=== PATIENT | female | born 1965 | race Caucasian/White ===

== ENCOUNTER 2019-04-25 10:15 | Emergency (ER) | payer BC, SELFPAY ==
--- NOTE | ~2019-04-25 | XR_ITS ---
EXAMINATION: XR chest 2V DATE: 04/25/2019 11:03 INDICATION: Cough and fever TECHNIQUE: PA and lateral views of the chest are obtained. COMPARISON: 10/10/2006 FINDINGS: The lungs are free of acute opacities. There is no pleural effusion or pneumothorax. The ca rdiomediastinal silhouette is normal. There is mild thoracic spondylosis. IMPRESSION: 1. No acute cardiopulmonary abnormality. Reviewed, dictated and finalized at location A. WOOD FLOORING SPECIALIST
[2019-04-25 10:38] VITALS: BP 128/75; PULSE 97; RESP 18; TEMP 36.9; O2SAT 97
--- NOTE | 2019-04-25 10:55 | ED.URI ---
HPI - URI/Sore Throat General Chief Complaint: Upper Respiratory Infection Stated Complaint: cough/congestion Time Seen by Provider: 04/25/19 10:45 Source: patient Mode of arrival: ambulatory Limitations: no limitations History of Present Illness HPI Narrative: Krys Camargo is a 53 yo female with a PMH asthma, HTN, high cholesterol, depression, who comes to express care with asthma exacerbation possible other upper respiratory infection. States many people are sick at work; Sunday evening started to feel fatigued and began running a temperature. Last night had a fever of 102.5. Is wheezing even though has been using nebulizer and albuterol inhaler Related Data Home Medications Medication Instructions Recorded Confirmed allopurinol 300 mg PO DAILY 04/25/19 04/25/19 alprazolam 0.25 mg PO DAILY 04/25/19 04/25/19 atenolol-chlorthalidone 1 tablet PO DAILY 04/25/19 04/25/19 estradiol-norethindrone acet 1 tablet PO DAILY 04/25/19 04/25/19 [Amabelz] sertraline 100 mg PO DAILY 04/25/19 04/25/19 simvastatin 10 mg PO DAILY 04/25/19 04/25/19 Allergies Allergy/AdvReac Type Severity Reaction Status Date / Time PROCESSED FRUCTOSE-CORN SYRUP AdvReac Intermediate SEVERE Uncoded 04/25/19 10:31 DIARRHEA Review of Systems Review of Systems: Narrative: CONSTITUTIONAL: Denies fever, chills, sweats. EYES: Denies visual changes, redness, discharge. ENT: Denies rhinorrhea, congestion, sore throat, otalgia. CARDIOVASCULAR: Denies chest pain, palpitations, edema. RESPIRATORY: has dyspnea, wheezing, cough GASTROINTESTINAL: Denies abdominal pain, nausea, vomiting, diarrhea. GENITOURINARY: Denies dysuria, hematuria, abnormal discharge SKIN: Denies rash or itching. MUSCULOSKELETAL: Denies acute back pain, joint pain, or myalgia. NEUROLOGIC: Denies numbness, or focal weakness. PSYCHIATRIC: Denies anxiety or depression. [facility] Family History Family History (Updated 09/18/17 @ 12:29 by DOCTOR UNKNOWN) Father Diabetes mellitus Hypertension Family history of elevated blood lipids Acute myocardial infarction Cerebrovascular accident Colon polyp Grandparent Diabetes mellitus Family history of elevated blood lipids Cerebrovascular accident, Onset Age: 50 Carcinoma of colon Family history of sudden , Onset Age: 50 Mother Hypertension Family history of malignant neoplasm of breast in first degree relative Sibling Hypertension Social History Social History Smoking status: Never smoker Alcohol intake: current Comments At time of signature, I agree with nursing past medical, surgical, social and family history. There is no relevant family history pertinent to the presenting complaint. Exam Narrative: Exam Narrative: GENERAL: This is a well-nourished, well-developed patient, in moderate distress. Laying head on exam table when entered room-flushed, perspiring HEAD: normocephalic, atraumatic. EYES: PERRL. Sclera clear/white. Vision is grossly intact. EARS: External ears normal, . Hearing grossly intact. NOSE: External nose normal with nasal discharge, nares without redness, has rhinorrhea. THROAT: Mucous membranes moist, posterior pharynx erythema. NECK: Neck supple, non-tender without lymphadenopathy, CARDIOVASCULAR: Tachycardic rate and rhythm without murmurs, gallops, or rubs. RESPIRATORY: Diminished to auscultation. Breath sounds equal bilaterally. Diffuse bilateral wheezes, no rhonchi. GASTROINTESTINAL: Abdomen soft, non-tender, SKIN: warm, intact with no suspicious lesions or rash, good texture and turgor. NEURO: awake, alert, and oriented to person, place and time. There were no obvious focal neurologic abnormalities. Steady gait EXTREMITIES: Normal range of motion. No edema. BACK: Nontender without deformity or crepitance. . Course Course Emergency Course: Chest x-ray, DuoNeb, Solu-Medrol IM Depending on results of chest x-ray will start on prednisone taper additional
[2019-04-25] MEDS: ALBUTEROL SULFATE NEB 2.5 MG/3 ML INH INHALATION (11:04)
[2019-04-25] MEDS: IPRATROPIUM BR 0.02% INH SOLN 0.5 MG/2.5 ML VIAL INHALATION (11:04)
[2019-04-25] MEDS: methylPREDNISolone SOD SUCC 125 MG VIAL IM (11:25)
[2019-04-25 11:46] VITALS: BP 132/98; PULSE 110; RESP 20; TEMP 36.2; O2SAT 98
== END 2019-04-25 11:46 | disposition home or self-care (01) ==
PROVIDERS: Emergency Provider Nurse Practitioner; PCP Family Medicine
DX: J45.909 Unspecified asthma, uncomplicated (principal); E78.00 Pure hypercholesterolemia, unspecified; I10 Essential (primary) hypertension; F32.9 Major depressive disorder, single episode, unspecified; M10.9 Gout, unspecified; G25.81 Restless legs syndrome
CPT/HCPCS: 71046; 94640; 96372; 99213; G0463; J2930

== ENCOUNTER 2020-02-28 07:17 | Outpatient (CLI) | payer BC, SELFPAY ==
--- NOTE | ~2020-02-28 | MM_ITS ---
EXAMINATION: MM screening antonina BI w vinicius HISTORY: Screening TECHNIQUE: Craniocaudal and mediolateral oblique 3-D tomosynthesis images were obtained and synthetic 2-D images were generated. CAD analysis was submitted and interpreted. COMPARISON: Comparison to multiple prior studies sequentially, with oldest reviewed study dated 11/2013. BREAST PARENCHYMAL COMPOSITION: There are scattered areas of fibroglandular density. FINDINGS: There is no evidence of suspicious mass, calcification, or architectural distortion to sugg est malignancy in either breast. There has been no suspicious interval change. IMPRESSION: 1. No mammographic evidence of malignancy. 2. Recommend routine screening mammography in one year. BI-RADS Category 1: Negative Reviewed, dictated and finalized at location A. GES SUPERVISOR
== END 2020-02-28 07:18 | disposition home or self-care (01) ==
LOC: ANHIMG 07:19
PROVIDERS: PCP Family Medicine; Visit Provider Obstetrics & Gynecology
DX: Z12.31 Encounter for screening mammogram for malignant neoplasm of breast (principal)
CPT/HCPCS: 77063; 77067

== ENCOUNTER → 2020-12-17 03:52 | Outpatient (CLI) | payer BC, SELFPAY ==
[2020-12-17 18:26] LABS: SARS-CoV-2 RNA PCR Negative
== END ==
PROVIDERS: PCP Family Medicine; Visit Provider Internal Medicine Gastroenterology
DX: Z01.812 Encounter for preprocedural laboratory examination (principal); Z20.822 Contact with and (suspected) exposure to COVID-19
CPT/HCPCS: C9803; U0003; U0005

== ENCOUNTER 2020-12-20 00:31 | Day surgery (SDC) | payer BC, SELFPAY ==
[2020-12-09 09:48] VITALS: BMI 42.0
[2020-12-20 09:38] VITALS: BP 118/89; PULSE 80; RESP 20; TEMP 35.8; O2SAT 99; BMI 41.5
--- NOTE | 2020-12-20 09:42 | WPDHPUPDATE1 ---
History and Physical Update Update Date/Time: 12/20/20 09:42 History and Physical has been reviewed, including an updated exam of the patient. There are NO changes in the patient's condition. Risks, benefits, and alternatives have been discussed and questions answered. Patient agrees to proceed with procedure.
--- NOTE | 2020-12-20 10:01 | P.PNAN_ITS ---
Anes - Initial Pre Proc Eval Procedure: Operation Date: 12/20/20 10:30 Proposed Procedures p Colonoscopy - Richardson Hammer MD Date/Time: 12/20/20 10:01 Surgeon: Richardson Hammer MD Pre Op Diagnosis: GI bleed Patient Data Age: 55 Gender: F Height: 1.68 m Weight: 116.7 kg Last Vital Signs Temp 35.8 C L 12/20/20 09:38 Pulse 80 12/20/20 09:38 Resp 20 12/20/20 09:38 BP 118/89 12/20/20 09:38 Pulse Ox 99 12/20/20 09:38 Allergies Allergy/AdvReac Type Severity Reaction Status Date / Time PROCESSED FRUCTOSE-CORN SYRUP AdvReac Intermediate SEVERE Uncoded 12/20/20 09:37 DIARRHEA Home Medications Medication Instructions Recorded Confirmed Type albuterol sulfate 90 mcg/actuation 2 inhalation INHALATION Q4-6H PRN 05/02/19 12/20/20 Rx breath activated powder #1 each inhaler,sensor psyllium seed (sugar) oral powder 1 tbsp PO DAILY 05/02/19 12/20/20 History alprazolam 0.25 mg tablet 0.25 mg PO DAILY #90 tablet 10/28/20 12/20/20 Rx atenolol 100 mg-chlorthalidone 25 1 tablet PO DAILY #90 tablet 10/28/20 12/20/20 Rx mg tablet allopurinol 300 mg PO DAILY 12/09/20 12/20/20 History cholecalciferol (vitamin D3) 1,250 mcg PO WEEKLY 12/09/20 12/20/20 History omeprazole magnesium [Prilosec OTC] 20 mg PO DAILY 12/09/20 12/20/20 History sertraline 100 mg PO DAILY 12/09/20 12/20/20 History simvastatin 20 mg PO DAILY 12/09/20 12/20/20 History Patient hx anesthesia problems: none Family hx anesthesia problems: none Results Review: All pre-operative results and documents have been reviewed as part of the pre-operative evaluation. [facility] Family History Family History Father Diabetes mellitus Hypertension Family history of elevated blood lipids Acute myocardial infarction Cerebrovascular accident Colon polyp Grandparent Diabetes mellitus Family history of elevated blood lipids Cerebrovascular accident, Onset Age: 50 Carcinoma of colon Family history of sudden , Onset Age: 50 Mother Hypertension Family history of malignant neoplasm of breast in first degree relative Sibling Hypertension Social History Social History Smoking status: Never smoker Alcohol intake: current Living arrangements: with family Spiritual care concerns: No Anes - Eval Final PreProcedure Day of Procedure 12/20/20 10:01 Patient weight: morbidly obese Heart: regular rate and rhythm Lungs: clear to auscultation Airway: Mallampati scale class III Neurological: alert and oriented Last oral intake: >/= 8 hours ASA classification: III Emergent: no Anesthetic plan: proceed Anesthesia type and monitoring: general GIVS and standard monitoring Results Review: All pre-operative results and documents have been reviewed as part of the pre-operative evaluation. Informed Consent: The patient's anesthetic plan and its attendant risks and benefits were discussed with the patient/family/POA. Questions were solicited and answers provided to the satisfaction of the patient/family/POA.
[2020-12-20] MEDS: LACTATED RINGERS 1,000 ML 150 ML IV CONT (10:04)
[2020-12-20 10:34] VITALS: BP 108/68; PULSE 85; RESP 26; O2SAT 95
[2020-12-20 10:44] VITALS: BP 113/75; PULSE 79; RESP 27; O2SAT 95
[2020-12-20 10:54] VITALS: BP 128/85; PULSE 74; RESP 26; O2SAT 96
== END 2020-12-20 11:05 | disposition home or self-care (01) ==
PROVIDERS: PCP Family Medicine; Visit Provider Internal Medicine Gastroenterology
PROC: 0DJD8ZZ Inspection of Lower Intestinal Tract, Via Natural or Artificial Opening Endoscopic (ICD-10-PCS; CPT 45378; principal; 2020-12-20 10:30)
DX: K92.1 Melena (principal); Z86.010 Personal history of colon polyps; K64.8 Other hemorrhoids; Z80.0 Family history of malignant neoplasm of digestive organs; Z79.51 Long term (current) use of inhaled steroids; E66.01 Morbid (severe) obesity due to excess calories; Z68.41 Body mass index [BMI] 40.0-44.9, adult
CPT/HCPCS: 45378; C9803; J7120; U0003; U0005

== ENCOUNTER 2021-03-12 07:08 | Outpatient (CLI) | payer BC, SELFPAY ==
--- NOTE | ~2021-03-12 | MM_ITS ---
EXAMINATION: MM screening antonina BI w vinicius HISTORY: Screening TECHNIQUE: Craniocaudal and mediolateral oblique 3-D tomosynthesis images were obtained and synthetic 2-D images were generated. CAD analysis was submitted and interpreted. COMPARISON: Comparison to multiple prior studies sequentially, with oldest reviewed study dated 11/14. BREAST PARENCHYMAL COMPOSITION: There are scattered areas of fibroglandular density. FINDINGS: There is no evidence of suspicious mass, calcification, or architectural distortion to sugg est malignancy in either breast. There has been no suspicious interval change. IMPRESSION: 1. No mammographic evidence of malignancy. 2. Recommend routine screening mammography in one year. BI-RADS Category 1: Negative Reviewed, dictated and finalized at location A. NICIAN ASSISTANT
== END 2021-03-12 07:09 | disposition home or self-care (01) ==
LOC: ANHIMG 07:09
PROVIDERS: PCP Family Medicine; Visit Provider Obstetrics & Gynecology
DX: Z12.31 Encounter for screening mammogram for malignant neoplasm of breast (principal)
CPT/HCPCS: 77063; 77067

== ENCOUNTER 2021-06-09 13:00 | Outpatient (RCR) | payer BC, SELFPAY ==
[2021-05-24 08:02] VITALS: BMI 43.8
[2021-05-24 08:06] VITALS: BMI 43.8
== END 2021-06-10 16:34 | disposition home or self-care (01) ==
LOC: ANHDMC 13:00
PROVIDERS: PCP Family Medicine; Visit Provider Physician Assistant
DX: E11.9 Type 2 diabetes mellitus without complications (principal); Z71.3 Dietary counseling and surveillance; Z71.89 Other specified counseling
CPT/HCPCS: 97802; G0108

== ENCOUNTER 2021-08-19 10:09 | Emergency (ER) | payer BC, SELFPAY ==
[2021-08-19 10:20] VITALS: BP 117/82; PULSE 74; RESP 18; TEMP 36.4; O2SAT 99
--- NOTE | 2021-08-19 10:23 | ED.SKABFB ---
HPI - Skin/Abscess/Foreign Bdy General Chief complaint: Extremity Injury, Lower Stated complaint: glass in rt foot Time Seen by Provider: 08/19/21 10:24 Source: patient Mode of arrival: ambulatory Limitations: no limitations History of Present Illness HPI narrative: Ms. Camargo is a 55-year-old female patient presenting to the clinic today with complaints of possible glass in her right foot. She reports she dropped a plate this morning and accidentally stepped on the glass. Was able to get some glass out but feels as though there is still some glass in her foot. She is a diabetic. MD complaint: foreign body Related Data Home Medications Medication Instructions Recorded Confirmed allopurinol 300 mg tablet 300 tablet DAILY 08/19/21 08/19/21 alprazolam 0.25 mg tablet 0.25 tablet DAILY 08/19/21 08/19/21 atenolol 100 mg-chlorthalidone 25 1 tablet DAILY 08/19/21 08/19/21 mg tablet cholecalciferol (vitamin D3) 1,250 50,000 unit WEEKLY 08/19/21 08/19/21 mcg (50,000 unit) capsule empagliflozin 5 mg-metformin 500 1 tablet BID 08/19/21 08/19/21 mg tablet (Synjardy) metformin 500 mg tablet 500 tablet BID 08/19/21 08/19/21 sertraline 100 mg tablet 100 tablet DAILY 08/19/21 08/19/21 simvastatin 20 mg tablet 20 tablet DAILY 08/19/21 08/19/21 sitagliptin 100 mg tablet (Januvia) 100 tablet DAILY 08/19/21 08/19/21 Allergies Allergy/AdvReac Type Severity Reaction Status Date / Time PROCESSED FRUCTOSE-CORN SYRUP AdvReac Intermediate SEVERE Uncoded 08/19/21 10:32 DIARRHEA Review of Systems Review of Systems: Pertinent positives per HPI. Patient denies any fever, chills, rash, headache, visual changes, dizziness, cough, runny nose, sore throat, shortness of breath, chest pain, palpitations, nausea, vomiting, diarrhea, constipation, abdominal pain, or any urinary issues. [facility] Family History Family History Father Diabetes mellitus Hypertension Family history of elevated blood lipids Acute myocardial infarction Cerebrovascular accident Colon polyp Grandparent Diabetes mellitus Family history of elevated blood lipids Cerebrovascular accident, Onset Age: 50 Carcinoma of colon Family history of sudden , Onset Age: 50 Mother Hypertension Family history of malignant neoplasm of breast in first degree relative Sibling Hypertension Social History Social History Alcohol intake: current Spiritual care concerns: No Comments At the time of my signature, I reviewed and agree with the nursing past medical, surgical, social, and family history. There is no relevant family history pertinent to the patient complaint. Exam Narrative: General: Well-developed, well nourished, in no apparent distress Head: Normocephalic, atraumatic. Cardio: Regular rate and rhythm, s1 and s2 normal, no murmur appreciated. Resp: Clear to auscultation bilaterally, no rhonchi, rales, wheezing or rubs. Integumentary: [place], warm, and dry, has an open wound to the right plantar aspect of the midfoot where she has cut the skin to remove glass. Area is very tender to palpation with mild redness. Feels as though there may be retained foreign body to this area. Course Course Emergency Course: Portions of this record may have been created with voice recognition software. Level of Care: Express Care Visit Vital Signs Vital signs: Vital Signs Temperature 36.4 C 08/19/21 10:20 Pulse Rate 74 08/19/21 10:20 Respiratory Rate 18 08/19/21 10:20 Blood Pressure 117/82 08/19/21 10:20 Pulse Oximetry 99 08/19/21 10:20 Oxygen Delivery Room Air 08/19/21 10:20 Temperature 36.4 C 08/19/21 10:20 Pulse Rate 74 08/19/21 10:20 Respiratory Rate 18 08/19/21 10:20 Blood Pressure 117/82 08/19/21 10:20 Pulse Oximetry 99 08/19/21 10:20 Oxygen Delivery Room Air 08/19/21 10:2
== END 2021-08-19 11:06 | disposition home or self-care (01) ==
PROVIDERS: Emergency Provider Nurse Practitioner Family; PCP Family Medicine
DX: S91.341A Puncture wound with foreign body, right foot, initial encounter (principal); W25.XXXA Contact with sharp glass, initial encounter; E78.00 Pure hypercholesterolemia, unspecified; I10 Essential (primary) hypertension; J45.909 Unspecified asthma, uncomplicated; M10.9 Gout, unspecified; E11.9 Type 2 diabetes mellitus without complications; F32.A Depression, unspecified
CPT/HCPCS: 10120; 99213; G0463

== ENCOUNTER 2021-12-05 10:20 | Emergency (ER) | payer BC, SELFPAY ==
--- NOTE | ~2021-12-05 | XR_ITS ---
EXAMINATION: XR chest 2V DATE: 12/05/2021 11:14 INDICATION: Cough and wheezing. TECHNIQUE: Frontal and lateral views of the chest were obtained. COMPARISON: Chest 2 views 04/25/2019 FINDINGS: The chest demonstrates clear lungs without pneumonia, pleural effusion, or pneumothorax. Th e heart size is normal. IMPRESSION: 1. No acute cardiopulmonary disease. Reviewed, dictated and finalized at location A.
[2021-12-05 10:47] VITALS: BP 124/87; PULSE 85; RESP 18; TEMP 36.4; O2SAT 98
--- NOTE | 2021-12-05 10:53 | ED.GENADULT ---
HPI - General Adult General Chief complaint: Upper Respiratory Infection Stated complaint: cough History of Present Illness HPI narrative: 56 y/o female. PMHx ZACKERY, HTN, Asthma, CAP, Dyslipidemia, DM II, Gout. Presents to [facility] today with acute complaints of increased nasal congestion, cough, and wheezing. She reports manifestations worsening in the past 4 days. She tells me she has been exposed to her at home, ill with similar issues in the past few days. Feels feverish . No DEVINE, lethargy, myalgia. Productive cough. Wheezing, that has improved with home Albuterol HFA. Denies otalgia, sore throat. No chest pain, palpitation, dyspnea. No GI upset, N/V/D. She is w/o additional acute c/o upon PE. Related Data Home Medications Medication Instructions Recorded Confirmed allopurinol 300 mg tablet 300 tablet DAILY 08/19/21 08/19/21 alprazolam 0.25 mg tablet 0.25 tablet DAILY 08/19/21 08/19/21 atenolol 100 mg-chlorthalidone 25 1 tablet DAILY 08/19/21 08/19/21 mg tablet empagliflozin 5 mg-metformin 500 1 tablet BID 08/19/21 08/19/21 mg tablet (Synjardy) simvastatin 20 mg tablet 20 tablet DAILY 08/19/21 08/19/21 Allergies Allergy/AdvReac Type Severity Reaction Status Date / Time PROCESSED FRUCTOSE-CORN SYRUP AdvReac Intermediate SEVERE Uncoded 08/19/21 10:32 DIARRHEA Review of Systems Review of Systems: CONSTITUTIONAL: Feels Feverish, chills. No sweats. EYES: Denies visual changes, redness, discharge. ENT: + rhinorrhea, congestion. No sore throat, otalgia. CARDIOVASCULAR: Denies chest pain, palpitations, edema. RESPIRATORY: No dyspnea. + wheezing, cough GASTROINTESTINAL: Denies abdominal pain, nausea, vomiting, diarrhea. GENITOURINARY: Denies dysuria, hematuria, abnormal discharge SKIN: Denies rash or itching. MUSCULOSKELETAL: Denies acute back pain, joint pain, or myalgia. NEUROLOGIC: Denies numbness, or focal weakness. PSYCHIATRIC: Denies anxiety or depression. [facility] Family History Family History Father Diabetes mellitus Hypertension Family history of elevated blood lipids Acute myocardial infarction Cerebrovascular accident Colon polyp Grandparent Diabetes mellitus Family history of elevated blood lipids Cerebrovascular accident, Onset Age: 50 Carcinoma of colon Family history of sudden , Onset Age: 50 Mother Hypertension Family history of malignant neoplasm of breast in first degree relative Sibling Hypertension Social History Social History Alcohol intake: current Spiritual care concerns: No Exam Narrative: GENERAL: This is a well-nourished, well-developed adult, in no apparent distress. HEAD: normocephalic. EYES: Sclera clear/white. EARS: External ears normal, auditory canals clear and without drainage, TMs normal. NOSE: External nose normal. Positive Rhinorrhea. No obstruction, nares patent. THROAT: Mucous membranes moist, posterior pharynx is mildly erythematous. +PND. No exudates. NECK: Neck supple, non-tender without lymphadenopathy, masses or thyromegaly. CARDIOVASCULAR: Regular rate and rhythm without murmurs, gallops, or rubs. No edema. RESPIRATORY: Breath sounds equal bilaterally. No wheezes or rales. Upper airway rhonchi, cleared w/cough. GASTROINTESTINAL: Abdomen soft, non-tender, nondistended. Bowel sounds are active. No guarding. SKIN: warm, intact with no suspicious lesions or rash, good texture and turgor. NEURO: Alert, active, and age appropriate. No focal neurologic deficits. Course Course Level of Care: Express Care Visit Medical Decision Making MDM Narrative Medical decision making narrative: -Known Hx including PNA, Asthma. -No hypoxemia, no respiratory distress. -SARS Covid:negative. -Chest Xray: No acute cardiopulmonary disease. -DC to home stable. -Zpack & Medrol, U
== END 2021-12-05 11:37 | disposition home or self-care (01) ==
PROVIDERS: Emergency Provider Nurse Practitioner Adult Health
DX: J45.909 Unspecified asthma, uncomplicated (principal); J06.9 Acute upper respiratory infection, unspecified; I10 Essential (primary) hypertension; E78.5 Hyperlipidemia, unspecified; E11.9 Type 2 diabetes mellitus without complications; M10.9 Gout, unspecified; F41.1 Generalized anxiety disorder
CPT/HCPCS: 71046; 99213; G0463

== ENCOUNTER 2022-04-01 07:12 | Outpatient (CLI) | payer BC, SELFPAY ==
--- NOTE | ~2022-04-01 | MM_ITS ---
EXAMINATION: MM screening antonina BI w vinicius HISTORY: Screening mammogram TECHNIQUE: Craniocaudal and mediolateral oblique 3-D tomosynthesis images were obtained and synthetic 2-D images were generated. CAD analysis was submitted and interpreted. COMPARISON: 03/12/2021, 02/28/2020, 02/15/2019 bilateral screening mammogram examinations BREAST PARENCHYMAL COMPOSITION: The breasts are almost entirely fatty. FINDINGS: There is no evidence of suspicious mass, calcification, or architectural distortion to sugg est malignancy in either breast. There has been no suspicious interval change. IMPRESSION: 1. No mammographic evidence of malignancy. 2. Recommend routine screening mammography in one year. BI-RADS Category 1: Negative Reviewed, dictated and finalized at location A. GER INSURANCE
== END 2022-04-01 07:13 | disposition home or self-care (01) ==
LOC: ANHIMG 07:13
PROVIDERS: PCP Emergency Medicine; Visit Provider Obstetrics & Gynecology
DX: Z12.31 Encounter for screening mammogram for malignant neoplasm of breast (principal)
CPT/HCPCS: 77063; 77067

== ENCOUNTER 2022-09-25 11:49 | Emergency (ER) | payer BC, SELFPAY ==
--- NOTE | 2022-09-25 11:51 | ED.SKABFB ---
HPI - Skin/Abscess/Foreign Bdy General Chief complaint: Skin/Abscess/Foreign Body Stated complaint: Rash Time Seen by Provider: 09/25/22 12:05 Source: patient, RN notes reviewed and old records reviewed Mode of arrival: ambulatory Limitations: no limitations History of Present Illness HPI narrative: 56-year-old female presents to the [facility] with a red area for over 1 week to the left antecubital. Patient reports that she had blood work done, the use tape and started with red spots to the area now it has grown and become itchy and dry. Put Vaseline on it once this morning. Onset (ago): week(s) (Over 1 week) Treatments prior to arrival: other (Vaseline this morning) Related Data Home Medications Medication Instructions Recorded Confirmed allopurinol 300 mg tablet 300 mg PO DAILY 07/14/22 09/25/22 omeprazole magnesium 10 mg oral 20 mg PO QHS 07/14/22 09/25/22 suspension,delayed release (Prilosec) Allergies Allergy/AdvReac Type Severity Reaction Status Date / Time adhesive tape AdvReac Mild Rash Verified 09/25/22 12:04 PROCESSED FRUCTOSE-CORN SYRUP AdvReac Intermediate SEVERE Uncoded 09/25/22 11:56 DIARRHEA Review of Systems Review of Systems: All systems reviewed & are unremarkable except as noted in HPI and below Constitutional: Constitutional: Reports no additional constitutional complaints Eyes: Eyes: Reports no additional eye complaints ENT: Reports system reviewed and no additional complaints, except as documented Cardiovascular: Cardiovascular: Reports no additional cardiovascular complaints, Denies chest pain and Denies dyspnea Respiratory: Respiratory: Reports no additional respiratory complaints, Denies chest congestion, Denies cough and Denies dyspnea Gastrointestinal: Gastrointestinal: Reports no additional gastrointestinal complaints, Denies abdominal pain, Denies nausea and Denies vomiting Musculoskeletal: Musculoskeletal: Reports no additional musculoskeletal complaints Integumentary/Breasts: Skin/Breast: Reports as per HPI Neurologic: Reports system reviewed and no additional complaints, except as documented Psychiatric: Psychiatric: Reports no additional psychiatric complaints Allergic/Immunologic: Allergic/Immunologic: Reports no additional allergic/immunologic complaints PMFSH Past Medical History Medical History Asthma Asthma exacerbation Depression DJD of shoulder Essential (primary) hypertension Gout, unspecified High cholesterol HTN (hypertension) Hyperlipidemia, unspecified Left shoulder pain Major depressive disorder, single episode, unspecified Obesity, unspecified Polyp of colon Prediabetes Restless legs syndrome Right shoulder pain Type 2 diabetes mellitus Vitamin D deficiency, unspecified Surgical History Surgical History History of bladder surgery Bladder Sling Family History Family History Father Diabetes mellitus Hypertension Family history of elevated blood lipids Acute myocardial infarction Cerebrovascular accident Colon polyp Grandparent Diabetes mellitus Family history of elevated blood lipids Cerebrovascular accident, Onset Age: 50 Carcinoma of colon Family history of sudden , Onset Age: 50 Mother Hypertension Family history of malignant neoplasm of breast in first degree relative Sibling Hypertension Social History Social History Smoking status: Never smoker Alcohol intake: current Living arrangements: with family Spiritual care concerns: No Comments At the time of my signature, I reviewed and agree with the nursing past medical, surgical, social, and family history. There is no relevant family history pertinent to the patient complaint. Exam Const: General: cooperative,
[2022-09-25 11:58] VITALS: BP 101/74; PULSE 104; RESP 16; TEMP 35.9; O2SAT 97
== END 2022-09-25 12:10 | disposition home or self-care (01) ==
PROVIDERS: Emergency Provider Nurse Practitioner; PCP Emergency Medicine
DX: L25.9 Unspecified contact dermatitis, unspecified cause (principal); J45.909 Unspecified asthma, uncomplicated; I10 Essential (primary) hypertension; M10.9 Gout, unspecified; E78.00 Pure hypercholesterolemia, unspecified; E78.5 Hyperlipidemia, unspecified; E66.9 Obesity, unspecified; Z68.41 Body mass index [BMI] 40.0-44.9, adult; G25.81 Restless legs syndrome; E55.9 Vitamin D deficiency, unspecified; E11.9 Type 2 diabetes mellitus without complications
CPT/HCPCS: 99213; G0463

== ENCOUNTER 2022-12-27 08:41 | Outpatient (CLI) | payer BC, SELFPAY ==
--- NOTE | 2023-01-09 15:27 | WPDHOMESLEEP ---
Sleep Study - Home Unattended Date of Study: 12/27/22 Ordering Provider: Christian Crow PA-C Interpreting Provider: Gia Sam, DO Home Sleep Study Type: Watch PAT Height: 1.68 m Weight: 122.47 kg Body Mass Index: 43.5 Neck Circumference (inches): 15.5 [place]: 4 Reason for Sleep Study Snoring, nocturnal gasping Sleep History The patient is a 57 year old female with hypertension, diabetes, anxiety, gout, hyperlipidemia, arthralgia, GERD, depression, asthma and restless leg syndrome that had a sleep study ordered by her primary care for evaluation of sleep apnea. The patient denies awakening from sleep short of breath. She constantly awakens at night with heartburn, belching or cough. She frequently snores and is occasionally loud enough that others complain. She frequently has trouble sleeping when she has a cold. She denies waking up gasping for air throughout the night. She occasionally has breathing problems at night observed by herself or others. She denies sweating excessively at night. She denies having heart palpitations or irregular heartbeats during the night. She rarely falls asleep during the day but never while driving. She denies sleep paralysis, cataplexy and hypnagogic / hypnopompic hallucinations. She denies having trouble at school or work due to sleepiness. She denies feeling afraid of going to sleep. She denies having nightmares and occasionally remembers her dreams. She denies having thoughts racing through her mind. She occasionally feels sad, depressed and anxious. She denies having muscular tension. She rarely notices parts of her body jerk. She occasionally kicks during the night. She frequently has crawling and aching feelings in her legs but rarely awakens due to leg pain throughout the night. She constantly grinds her teeth during sleep but never awakens with morning jaw pain. She denies being bothered by pain during the day and denies being awakened by pain during the night. She denies waking up feeling stiff in the morning. She denies waking up with sore or achy muscles. She denies waking up with pain in the neck, spine or other joints. She goes to bed at 9:00 p.m. on both weekdays and weekends. It takes her 30 minutes to fall asleep. She wakes up 6-8 times throughout the night to reposition and is able to fall back asleep within 15 minutes. She wakes up at 5:00 a.m. weekdays and between 3-5 a.m. on the weekends. She typically gets 4-6 hours of sleep per night. She will stay in bed for 5 minutes after waking up in the morning. She currently lives with her . She denies consuming any caffeinated beverages within 2 hours of bedtime. She denies engaging in physical exercise before bedtime. She will watch television before falling asleep. She will take naps on the weekends and they are refreshing. She denies consuming any caffeinated beverages throughout the day. She denies tobacco, alcohol and recreational drug use. [facility] Past Medical History Medical History Asthma Asthma exacerbation Depression DJD of shoulder Essential (primary) hypertension Gout, unspecified High cholesterol HTN (hypertension) Hyperlipidemia, unspecified Left shoulder pain Major depressive disorder, single episode, unspecified Obesity, unspecified Polyp of colon Prediabetes Restless legs syndrome Right shoulder pain Type 2 diabetes mellitus Vitamin D deficiency, unspecified Surgical History Surgical History History of bladder surgery Bladder Sling Family History Family History Father Diabetes mellitus Hypertension Family history of elevated blood lipids Acute myocardial infarction Cerebrovascular accident Colon polyp Grandparent Diabetes mellitus Family history of elevated blood lipids Cerebrov
[2023-01-09 15:28] VITALS: BMI 43.5
== END 2022-12-27 12:00 | disposition home or self-care (01) ==
LOC: ANHCSM 08:42
PROVIDERS: PCP Emergency Medicine; Visit Provider Physician Assistant
DX: G47.33 Obstructive sleep apnea (adult) (pediatric) (principal); I10 Essential (primary) hypertension; E78.5 Hyperlipidemia, unspecified; E66.9 Obesity, unspecified; Z68.41 Body mass index [BMI] 40.0-44.9, adult; E11.9 Type 2 diabetes mellitus without complications
CPT/HCPCS: 95800

== ENCOUNTER 2023-01-25 08:34 | Outpatient (CLI) | payer BC, SELFPAY ==
--- NOTE | 2023-02-06 14:04 | WPDSLEEPSTUD ---
Sleep Study Date of Study: 01/25/23 Ordering Provider: Christian Crow PA-C Interpreting Physician: Gia Sam, DO Sleep Study Type: CPAP Titration Height: 1.68 m Weight: 113.398 kg Body Mass Index: 40.3 Neck Circumference (inches): 15.5 [place]: 4 Reason for Sleep Study The patient had a WatchPAT home sleep test on 12/27/2022 that showed an AHI of 36.9 with desaturation down to 7&%. She spent 44.2 minutes with an SpO2 > 88%. Sleep History The patient is a 57 year old female with hypertension, diabetes, anxiety, gout, hyperlipidemia, arthralgia, GERD, depression, asthma and restless leg syndrome that had a sleep study ordered by her primary care for evaluation of sleep apnea.? The patient denies awakening from sleep short of breath.? She constantly awakens at night with heartburn, belching or cough.? She frequently snores and is occasionally loud enough that others complain.? She frequently has trouble sleeping when she has a cold.? She denies waking up gasping for air throughout the night.? She occasionally has breathing problems at night observed by herself or others.? She denies sweating excessively at night.? She denies having heart palpitations or irregular heartbeats during the night.? She rarely falls asleep during the day but never while driving.? She denies sleep paralysis, cataplexy and hypnagogic / hypnopompic hallucinations.? She denies having trouble at school or work due to sleepiness.? She denies feeling afraid of going to sleep.? She denies having nightmares and occasionally remembers her dreams.? She denies having thoughts racing through her mind.? She occasionally feels sad, depressed and anxious.? She denies having muscular tension.? She rarely notices parts of her body jerk.??She occasionally kicks during the night.? She frequently has crawling and aching feelings in her legs but rarely awakens due to leg pain throughout the night.? She constantly grinds her teeth during sleep but never awakens with morning jaw pain.? She denies being bothered by pain during the day and denies being awakened by pain during the night.? She denies waking up feeling stiff in the morning.? She denies waking up with sore or achy muscles.? She denies waking up with pain in the neck, spine or other joints.? She goes to bed at 9:00 p.m. on both weekdays and weekends.? It takes her 30 minutes to fall asleep.? She wakes up 6-8 times throughout the night to reposition and is able to fall back asleep within 15 minutes.? She wakes up at 5:00 a.m. weekdays and between 3-5 a.m. on the weekends.? She typically gets 4-6 hours of sleep per night.? She will stay in bed for 5 minutes after waking up in the morning.? She currently lives with her .? She denies consuming any caffeinated beverages within 2 hours of bedtime.? She denies engaging in physical exercise before bedtime.? She will watch television before falling asleep.? She will take naps on the weekends and they are refreshing.? She denies consuming any caffeinated beverages throughout the day.? She denies tobacco, alcohol and recreational drug use. [facility] Past Medical History Medical History Asthma Asthma exacerbation Depression DJD of shoulder Essential (primary) hypertension Gout, unspecified High cholesterol HTN (hypertension) Hyperlipidemia, unspecified Left shoulder pain Major depressive disorder, single episode, unspecified Obesity, unspecified Polyp of colon Prediabetes Restless legs syndrome Right shoulder pain Type 2 diabetes mellitus Vitamin D deficiency, unspecified Surgical History Surgical History History of bladder surgery Bladder Sling Family History Family History Father Diabetes mellitus Hypertension Family history of elevated blood lipids Acute myocardial infarction Cerebrovascular accide
[2023-02-06 14:21] VITALS: BMI 40.3
== END 2023-01-26 07:19 | disposition home or self-care (01) ==
LOC: ANHCSM 08:34
PROVIDERS: PCP Emergency Medicine; Visit Provider Physician Assistant
DX: G47.33 Obstructive sleep apnea (adult) (pediatric) (principal)
CPT/HCPCS: 95811

== ENCOUNTER 2023-06-29 07:18 | Outpatient (CLI) | payer BC, SELFPAY ==
--- NOTE | ~2023-06-29 | MM_ITS ---
EXAMINATION: MM screening [place] BI w vinicius HISTORY: Screening TECHNIQUE: Craniocaudal and mediolateral oblique 3-D tomosynthesis images were obtained and synthetic 2-D images were generated. CAD analysis was submitted and interpreted. COMPARISON: Comparison to multiple prior studies sequentially, with oldest reviewed study dated 01/25. BREAST PARENCHYMAL COMPOSITION: Not dense: There are scattered areas of fibroglandular density. FINDINGS: There is no evidence of suspicious mass, calcification, or architectural distortion to sugg est malignancy in either breast. There has been no suspicious interval change. IMPRESSION: 1. No mammographic evidence of malignancy. 2. Recommend routine screening mammography in one year. BI-RADS Category 1: Negative Reviewed, dictated and finalized at location A.
== END 2023-06-29 07:19 | disposition home or self-care (01) ==
LOC: ANHIMG 07:21
PROVIDERS: PCP Emergency Medicine; Visit Provider Obstetrics & Gynecology
DX: Z12.31 Encounter for screening mammogram for malignant neoplasm of breast (principal)
CPT/HCPCS: 77063; 77067

== ENCOUNTER 2023-06-30 09:14 | Emergency (ER) | payer BC, SELFPAY ==
--- NOTE | 2023-06-30 09:29 | ED.GENADULT ---
HPI - General Adult General Chief complaint: Upper Respiratory Infection Stated complaint: unknown Time Seen by Provider: 06/30/23 09:30 Source: patient Mode of arrival: ambulatory Limitations: no limitations History of Present Illness HPI narrative: 57-year-old female presents with complaint of nasal and sinus congestion, postnasal drainage, sore throat, coughing, fatigue for the past 9-10 days. Reports Mild shortness of breath with exertion history of asthma. taking [id number] Delsym and Mucinex. Afebrile. All systems reviewed and negative except as noted above. Related Data Home Medications Medication Instructions Recorded Confirmed cholecalciferol (vitamin D3) 1,250 50,000 unit PO WEEKLY 04/10/23 06/30/23 mcg (50,000 unit) capsule magnesium 500 mg tablet 500 mg PO DAILY 04/10/23 06/30/23 omeprazole magnesium 20 mg 20 mg PO DAILY 04/10/23 06/30/23 tablet,delayed release (Prilosec OTC) psyllium husk 0.4 gram capsule 0.8 g PO DAILY 04/10/23 06/30/23 (Metamucil) zinc 50 mg tablet 50 mg PO DAILY 04/10/23 06/30/23 Allergies Allergy/AdvReac Type Severity Reaction Status Date / Time adhesive tape AdvReac Mild Rash Verified 06/30/23 09:27 PROCESSED FRUCTOSE-CORN SYRUP AdvReac Intermediate SEVERE Uncoded 06/30/23 09:27 DIARRHEA Review of Systems Review of Systems: CONSTITUTIONAL: Denies fever, chills, or sweats. reports fatigue. EYES: Denies visual changes, redness, or discharge. ENT: Reports rhinorrhea, congestion, sinus pressure, sore throat, or otalgia. CARDIOVASCULAR: Denies chest pain, palpitations, or edema. RESPIRATORY: reports cough and dyspnea with exertion. GASTROINTESTINAL: Denies abdominal pain, nausea, vomiting, or diarrhea. GENITOURINARY: Denies dysuria or hematuria. SKIN: Denies rash or itching. MUSCULOSKELETAL: Denies back pain, joint pain, or myalgia. NEUROLOGIC: Denies headache, numbness, or weakness. PSYCHIATRIC: Denies anxiety or depression. All other systems reviewed are negative, except as documented in HPI. [facility] Past Medical History Medical History Asthma Asthma exacerbation Depression DJD of shoulder Essential (primary) hypertension Gout, unspecified High cholesterol HTN (hypertension) Hyperlipidemia, unspecified Left shoulder pain Major depressive disorder, single episode, unspecified Obesity, unspecified Polyp of colon Prediabetes Restless legs syndrome Right shoulder pain Type 2 diabetes mellitus Vitamin D deficiency, unspecified Surgical History Surgical History History of bladder surgery Bladder Sling Family History Family History Father Diabetes mellitus Hypertension Family history of elevated blood lipids Acute myocardial infarction Cerebrovascular accident Colon polyp Grandparent Diabetes mellitus Family history of elevated blood lipids Cerebrovascular accident, Onset Age: 50 Carcinoma of colon Family history of sudden , Onset Age: 50 Mother Hypertension Family history of malignant neoplasm of breast in first degree relative Sibling Hypertension Social History Social History Smoking status: Never smoker Alcohol intake: current Lack of Transportation: No Lack of Food: Never True Current Housing: I Have Housing Concerned About Future Housing: No Difficulty Paying Gas/Electric Bills: No Difficulty Paying for Meds: No Currently Unemployed: No Education: High School Diploma/GED Difficulty w/ Childcare or Family Care: No Living arrangements: with family Spiritual care concerns: No Comments At time of signature, agree with nursing past medical, surgical, social and family history. There is no relevant family history pertinent to the presenting complaint.
[2023-06-30 09:34] VITALS: BP 124/65; PULSE 85; RESP 18; TEMP 36.1; O2SAT 98
== END 2023-06-30 09:47 | disposition home or self-care (01) ==
PROVIDERS: Emergency Provider Nurse Practitioner Family; PCP Emergency Medicine
DX: J01.90 Acute sinusitis, unspecified (principal); J45.901 Unspecified asthma with (acute) exacerbation; I10 Essential (primary) hypertension; M10.9 Gout, unspecified; E78.00 Pure hypercholesterolemia, unspecified; E78.5 Hyperlipidemia, unspecified; E66.9 Obesity, unspecified; Z68.41 Body mass index [BMI] 40.0-44.9, adult; G25.81 Restless legs syndrome; E11.9 Type 2 diabetes mellitus without complications; E55.9 Vitamin D deficiency, unspecified
CPT/HCPCS: 99213; G0463

== ENCOUNTER 2023-08-21 16:32 | Emergency (ER) | payer BC, SELFPAY ==
--- NOTE | 2023-08-21 16:51 | ED.SKABFB ---
HPI - Skin/Abscess/Foreign Bdy General Chief complaint: Extremity Injury, Lower Stated complaint: sore on rt leg Time Seen by Provider: 08/21/23 16:50 Source: patient Mode of arrival: ambulatory Limitations: no limitations History of Present Illness HPI narrative: Belen is a 57-year-old female patient presenting to the clinic today with complaints of a sore on her right inner thigh that started approximately 3 weeks ago. She is concerned it may be a spider bite. She took a picture of it and sent it to a clinical social work aide friend and he thinks that it is infected and she needs to have it evaluated. She denies any fever or chills. No drainage coming from the area. She is diabetic. No known insect bite or injury that she is aware of. Related Data Home Medications Medication Instructions Recorded Confirmed magnesium 500 mg tablet 500 mg PO DAILY 04/10/23 08/21/23 omeprazole magnesium 20 mg 20 mg PO DAILY 04/10/23 08/21/23 tablet,delayed release (Prilosec OTC) zinc 50 mg tablet 50 mg PO DAILY 04/10/23 08/21/23 sitagliptin phosphate 100 mg 100 mg PO DAILY 08/21/23 08/21/23 tablet (Januvia) Allergies Allergy/AdvReac Type Severity Reaction Status Date / Time adhesive tape AdvReac Mild Rash Verified 08/21/23 17:01 PROCESSED FRUCTOSE-CORN SYRUP AdvReac Intermediate SEVERE Uncoded 08/21/23 17:01 DIARRHEA Review of Systems Review of Systems: Pertinent positives per HPI. Patient denies any fever, chills, rash, headache, visual changes, dizziness, cough, shortness of breath, chest pain, palpitations, nausea, vomiting, diarrhea, constipation, abdominal pain, or any urinary issues. [facility] Past Medical History Medical History Asthma Asthma exacerbation Depression DJD of shoulder Essential (primary) hypertension Gout, unspecified High cholesterol HTN (hypertension) Hyperlipidemia, unspecified Left shoulder pain Major depressive disorder, single episode, unspecified Obesity, unspecified Polyp of colon Prediabetes Restless legs syndrome Right shoulder pain Type 2 diabetes mellitus Vitamin D deficiency, unspecified Surgical History Surgical History History of bladder surgery Bladder Sling Family History Family History Father Diabetes mellitus Hypertension Family history of elevated blood lipids Acute myocardial infarction Cerebrovascular accident Colon polyp Grandparent Diabetes mellitus Family history of elevated blood lipids Cerebrovascular accident, Onset Age: 50 Carcinoma of colon Family history of sudden , Onset Age: 50 Mother Hypertension Family history of malignant neoplasm of breast in first degree relative Sibling Hypertension Social History Social History Smoking status: Never smoker Alcohol intake: current Lack of Transportation: No Lack of Food: Never True Current Housing: I Have Housing Concerned About Future Housing: No Difficulty Paying Gas/Electric Bills: No Difficulty Paying for Meds: No Currently Unemployed: No Education: High School Diploma/GED Difficulty w/ Childcare or Family Care: No Living arrangements: with family Spiritual care concerns: No Comments At the time of my signature, I reviewed and agree with the nursing past medical, surgical, social, and family history. There is no relevant family history pertinent to the patient complaint. Exam Narrative: General: Well-developed, well nourished, in no apparent distress Head: Normocephalic, atraumatic. Cardio: Regular rate and rhythm, s1 and s2 normal, no murmur appreciated. Resp: Clear to auscultation bilaterally, no rhonchi, rales, wheezing or rubs. Integumentary: [place], warm, and dry, 3 x 2 fluctuant abscess to the right inner thi
[2023-08-21 16:59] VITALS: BP 122/75; PULSE 90; RESP 18; TEMP 36.9; O2SAT 98
== END 2023-08-21 17:20 | disposition home or self-care (01) ==
PROVIDERS: Emergency Provider Nurse Practitioner Family; PCP Emergency Medicine
DX: L02.415 Cutaneous abscess of right lower limb (principal); J45.909 Unspecified asthma, uncomplicated; I10 Essential (primary) hypertension; M10.9 Gout, unspecified; E78.00 Pure hypercholesterolemia, unspecified; E78.5 Hyperlipidemia, unspecified; E66.9 Obesity, unspecified; Z68.41 Body mass index [BMI] 40.0-44.9, adult; G25.81 Restless legs syndrome; E11.9 Type 2 diabetes mellitus without complications; Z79.84 Long term (current) use of oral hypoglycemic drugs
CPT/HCPCS: 10060; 87070; 87205; 99213; G0463

== ENCOUNTER 2024-01-26 09:29 | Emergency (ER) | payer BC, SELFPAY ==
[2024-01-26 09:57] VITALS: BP 94/66; PULSE 115; RESP 16; TEMP 35.8; O2SAT 97
[2024-01-26 10:21] LABS: EDCOVIDSCREEN Negative (Negative); EDINFLUASCREEN Negative (Negative); EDINFLUBSCREEN Negative (Negative)
--- NOTE | 2024-01-26 10:24 | ED_ITS ---
HPI - Nausea/Vomiting/Diarrhea General Chief complaint: Nausea/Vomiting/Diarrhea Stated complaint: vomiting Time Seen by Provider: 01/26/24 10:08 Source: patient, family (), RN notes reviewed and old records reviewed Mode of arrival: ambulatory Limitations: no limitations History of Present Illness HPI Narrative: Patient presents today complaining of 3 day history of vomiting, 3-5 times per day. So far today, patient has not had any vomiting episodes but continues to be very nauseated. Associated symptoms include chills, sweats. Denies abdominal pain, chest pain, shortness of breath, diarrhea, fever. She has not been able to keep down any fluids until today as well and has had a bit of Gatorade prior to arrival. The day before onset of symptoms, patient's dose of Mounjaro was increased from 10-12.5mg weekly by her PCP. States her blood sugars have been good. Last one she took 5 days ago, prior to onset of symptoms, was 95 in the morning. Related Data Home Medications Medication Instructions Recorded Confirmed magnesium 500 mg tablet 500 mg PO DAILY 04/10/23 01/26/24 omeprazole magnesium 20 mg 20 mg PO DAILY 04/10/23 01/26/24 tablet,delayed release (Prilosec OTC) zinc 50 mg tablet 50 mg PO DAILY 04/10/23 01/26/24 albuterol sulfate 90 mcg/actuation 2 puff inhalation PRN PRN 01/26/24 01/26/24 aerosol inhaler Shortness Of Breath Or Wheezing Allergies Allergy/AdvReac Type Severity Reaction Status Date / Time adhesive tape AdvReac Mild Rash Verified 01/26/24 09:36 PROCESSED FRUCTOSE-CORN SYRUP AdvReac Intermediate SEVERE Uncoded 01/26/24 09:36 DIARRHEA Review of Systems Review of Systems: CONSTITUTIONAL: Denies body aches, fever, or sweats.+ chill EYES: Denies visual changes, redness, or discharge. ENT: Denies rhinorrhea, congestion, sore throat, or otalgia. CARDIOVASCULAR: Denies chest pain, palpitations, or edema. RESPIRATORY: Denies cough or dyspnea. GASTROINTESTINAL: Denies abdominal pain, or diarrhea.+ nausea, vomiting GENITOURINARY: Denies dysuria or hematuria. SKIN: Denies rash, itching, or wounds. MUSCULOSKELETAL: Denies back pain, joint pain, or myalgia. NEUROLOGIC: Denies headache, numbness, tingling, or weakness. PSYCH: Denies depression or anxiety. [facility] Past Medical History Medical History Asthma Asthma exacerbation DJD of shoulder Essential (primary) hypertension Gout, unspecified High cholesterol HTN (hypertension) Hyperlipidemia, unspecified Left shoulder pain Major depressive disorder, single episode, unspecified Obesity, unspecified Prediabetes Restless legs syndrome Right shoulder pain Type 2 diabetes mellitus Vitamin D deficiency, unspecified Surgical History Surgical History History of bladder surgery Bladder Sling Family History Family History Father Diabetes mellitus Hypertension Family history of elevated blood lipids Acute myocardial infarction Cerebrovascular accident Colon polyp Grandparent Diabetes mellitus Family history of elevated blood lipids Cerebrovascular accident, Onset Age: 50 Carcinoma of colon Family history of sudden , Onset Age: 50 Mother Hypertension Family history of malignant neoplasm of breast in first degree relative Sibling Hypertension Social History Social History Smoking status: Never smoker Alcohol intake: current Lack of Transportation: No Lack of Food: Never True Current Housing: I Have Housing Concerned About Future Housing: No Difficulty Paying Gas/Electric Bills: No Difficulty Paying for Meds: No Currently Unemployed: No Education: High School Diploma/GED Difficulty w/ Childcare or Family Care: No Living arrangements: with family Spiritual care concerns: No Comments At time of signature, I have reviewed and agree with nursing past medical, surgical, social and family history unless otherwise noted. Please see nursing chart for further information. There is no relevant family history pertinent to the presenting complaint Exam Narrative: GENERAL: Mildly ill-appearing, well-nourished, and in no acute distress. HEAD: Normocephalic, atraumatic. EYES: EOMI. No redness or drainage. Conjunctivae normal. ENT: Mucous membranes pink and tacky. Lips dry. NECK: Normal AROM. CHEST: No respiratory distress. Clear to auscultation. HEART: Regular rate and rhythm. No murmur appreciated. Normal peripheral pulses. ABDOMEN: Soft, nontender, nondistended, normal active bowel sounds. EXTREMITIES: Normal range of motion. No edema. SKIN: Warm, dry, no rash. Capillary refill normal. Normal skin turgor. NEURO: No focal deficits. Alert and oriented x3. Gait steady. PSYCH: Normal affect. No signs of depression or anxiety. Course Course Emergency Course: Dose of 8 mg ODT Zofran given to patient, then will p.o. challenge. 1048- States nausea has improved. Given popscicle. 1107-patient doing well with p.o. challenge. Level of Care: Express Care Visit Vital Signs Vital signs: Vital Signs Temperature 96.5 F L 01/26/24 09:57 Pulse Rate 115 H 01/26/24 09:57 Respiratory Rate 16 01/26/24 09:57 Blood Pressure 94/66 L 01/26/24 09:57 Pulse Oximetry 97 01/26/24 09:57 Oxygen Delivery Room Air 01/26/24 09:57 Temperature 96.5 F L 01/26/24 09:57 Pulse Rate 115 H 01/26/24 09:57 Respiratory Rate 16 01/26/24 09:57 Blood Pressure 94/66 L 01/26/24 09:57 Pulse Oximetry 97 01/26/24 09:57 Oxygen Delivery Room Air 01/26/24 09:57 Reviewed MDM - Nausea/Vomiting/Diarrhea MDM Narrative Medical decision making narrative: Patient did well with p.o. challenge after Zofran. Discussed continuing Zofran as needed as Mounjaro has long half-life. She will contact her PCP on Sunday to discuss current symptoms. Prescription for Zofran sent to pharmacy. Anticipatory guidance given Differential Diagnosis Differential diagnosis: Likely food poisoning, gastroenteritis, dehydration and other (Medication reaction) Lab Data Attestation: I reviewed the patient's lab results. Labs: Lab Results 01/26/24 Range/Units 10:20 POC Influenza A Ag Negative (Negative) POC Influenza B Ag Negative (Negative) POC SARS CoV-2 Ag Negative (Negative) Critical Care Time Critical Care Time Critical Care Time: No Discharge Plan Discharge Clinical Impression: Medication side effect Nausea & vomiting Qualifiers: Vomiting type: unspecified Qualified Code(s): R11.2 - Nausea with vomiting, unspecified Patient Disposition: Home, Self-Care Condition: Stable Instructions: Acute Nausea and Vomiting (ED) Additional Instructions: Please take the Zofran as needed. Stick to the fluids today and advance to bland foods tomorrow as tolerated. Call your PCP on Sunday to report these symptoms. If you find that you are again unable to keep down fluids, please go to the ER for further evaluation and treatment. Prescriptions: New ondansetron 8 mg tablet,disintegrating 8 mg PO Q4-6H PRN (Reason: nausea and vomiting) Qty: 20 0RF No Action albuterol sulfate 90 mcg/actuation HFA aerosol inhaler 2 puff INHALATION PRN PRN (Reason: Shortness Of Breath Or Wheezing) Mounjaro 12.5 mg/0.5 mL pen injector 12.5 mg subcut WEEKLY Qty: 2 0RF magnesium 500 mg Tablet 500 mg PO DAILY zinc 50 mg Tablet 50 mg PO DAILY omeprazole magnesium [Prilosec OTC] 20 mg Tablet,Delayed Release (Dr/Ec) 20 mg PO DAILY (DME) cpap See Rx Instructions .Route .MEDSUPPLY Qty: 1 0RF Rx Instructions: Resmed AirSense 11 CPAP at 9 cm H2O, size small Resmed AirFit F20, CPAP filters/tubing and heated humidity bimatoprost 0.03 % drops with applicator 1 applic topical QHS Qty: 3 0RF Rx Instructions: place one drop on applicator and apply evenly along the skin of the upper eyelid at base of eyelashes once daily at bedtime; repeat procedure for second eye (use a clean applicator) cholecalciferol (vitamin D3) 1,250 mcg (50,000 unit) capsule 50,000 unit PO WEEKLY Qty: 12 0RF Rx Instructions: TAKE 1 CAPSULE BY MOUTH WEEKLY allopurinol 300 mg tablet 300 mg PO DAILY Qty: 90 1RF sertraline 100 mg tablet 100 mg PO DAILY Qty: 90 3RF Rx Instructions: TAKE 1 TABLET DAILY meloxicam 15 mg tablet See Rx Instructions .ROUTE .COMPLEX Qty: 90 1RF Dose Instruction: TAKE 1 TABLET DAILY Rx Instructions: TAKE 1 TABLET DAILY atenolol-chlorthalidone 100-25 mg tablet 1 tablet PO DAILY Qty: 90 1RF metformin 500 mg tablet 500 mg PO BID Qty: 180 1RF simvastatin 20 mg tablet 20 mg PO QHS Qty: 90 3RF alprazolam 0.25 mg tablet 0.25 mg PO QHS Qty: 90 0RF Follow-up/Referrals: Leonora Curry APRN [Primary Care Provider] - Time of Disposition: 11:11
[2024-01-26] MEDS: ONDANSETRON HCL ODT 4 MG TABLET 8 MG SUBLINGUAL (10:25)
== END 2024-01-26 11:12 | disposition home or self-care (01) ==
PROVIDERS: Emergency Provider Nurse Practitioner; PCP Nurse Practitioner Family
DX: R11.2 Nausea with vomiting, unspecified (principal); T38.3X5A Adverse effect of insulin and oral hypoglycemic [antidiabetic] drugs, initial encounter; Z20.822 Contact with and (suspected) exposure to COVID-19; J45.909 Unspecified asthma, uncomplicated; I10 Essential (primary) hypertension; E11.9 Type 2 diabetes mellitus without complications; Z79.84 Long term (current) use of oral hypoglycemic drugs; Z79.85 Long-term (current) use of injectable non-insulin antidiabetic drugs; E78.00 Pure hypercholesterolemia, unspecified; G25.81 Restless legs syndrome; E66.9 Obesity, unspecified; Z68.38 Body mass index [BMI] 38.0-38.9, adult
CPT/HCPCS: 87426; 87804; 99213; A9270; G0463

== ENCOUNTER 2024-01-30 09:06 | Emergency (ER) | payer BC, SELFPAY ==
[2024-01-30] VITALS (13 sets, daily range): BP systolic 90–141; BP diastolic 49–97; PULSE 97–117; RESP 11–38; TEMP 36.4; O2SAT 94–100
--- NOTE | ~2024-01-30 | US_ITS ---
Limited ABDOMINAL ULTRASOUND Ordering provider: Teena Cummings MD History: . RUQ pain, n/v . Comparison: None. FINDINGS: LIVER: Normal size and increased echogenicity suggestive of fatty infiltration. No focal hepatic lesi ons or perihepatic fluid collections are identified. Portal vein flow is normal. GALLBLADDER: Possible sludge near to the neck of the gallbladder. Otherwise, No evidence for stones, gallbladder wall thickening or pericholecystic fluid collections. A negative sonographic Kiser's sig n was noted. BILIARY DUCTS: No evidence for intra or extrahepatic biliary dilation. Common bile duct measures 7.7 mm in diameter which is within normal limits. PANCREAS: The tendon is not well demonstrated. Otherwise, Normal echotexture and size. UPPER ABDOMINAL AORTA: Normal in caliber. IVC: Patent. FREE FLUID: None. IMPRESSION: Possible slices near to the neck of the gallbladder. Fatty infiltration of the liver. Otherwise, Unre markable limited ultrasound of the abdomen. Reviewed, dictated and finalized at location A. [facility] [employer] IMPRESSION: Possible slices near to the neck of the gallbladder. Fatty infiltration of the liver. Otherwise, Unremarkable limited ultrasound of the abdomen.
--- NOTE | 2024-01-30 09:22 | ECG_ITS ---
Test Date: 2024-01-30 09:24:11 Measurements Intervals [place] Rate: 99 P: 16 IN: 169 QRS: -5 QRSD: 102 T: 8 QT: 369 QTc: 474 Interpretive Statements SINUS RHYTHM DELAYED PRECORDIAL R/S TRANSITION INFERIOR INFARCT, AGE INDETERMINATE NONSPECIFIC ST-T WAVE ABNORMALITY- ANTEROLAT/HIGH LAT LEADS ABNORMAL ECG No previous ECG available for comparison Electronically Signed On 01-30-2024 09:40:47 [employer] by Gordon Santiago D.O.
--- NOTE | 2024-01-30 09:27 | ED.ABDPAIN ---
HPI - Abdominal Pain General Chief Complaint: Abdominal Pain Stated Complaint: sent by PCP for abominal pain Time Seen by Provider: 01/30/24 09:12 History of Present Illness HPI narrative: patient has been having intermittent right upper quadrant pain for the last week, with nausea vomiting, was told by her doctor to go to the ER immediately for low potassium and for abnormal CT findings. Related Data Home Medications Medication Instructions Recorded Confirmed magnesium 500 mg tablet 500 mg PO DAILY 04/10/23 01/30/24 omeprazole magnesium 20 mg 20 mg PO DAILY 04/10/23 01/30/24 tablet,delayed release (Prilosec OTC) zinc 50 mg tablet 50 mg PO DAILY 04/10/23 01/29/24 albuterol sulfate 90 mcg/actuation 2 puff inhalation PRN PRN 01/26/24 01/30/24 aerosol inhaler Shortness Of Breath Or Wheezing Allergies Allergy/AdvReac Type Severity Reaction Status Date / Time adhesive tape AdvReac Mild Rash Verified 01/30/24 09:21 PROCESSED FRUCTOSE-CORN SYRUP AdvReac Intermediate SEVERE Uncoded 01/30/24 09:21 DIARRHEA Review of Systems Review of Systems: All systems reviewed & are unremarkable except as noted in HPI and below PMFSH Past Medical History Medical History Asthma Asthma exacerbation DJD of shoulder Essential (primary) hypertension Gout, unspecified High cholesterol HTN (hypertension) Hyperlipidemia, unspecified Left shoulder pain Major depressive disorder, single episode, unspecified Obesity, unspecified Prediabetes Restless legs syndrome Right shoulder pain Type 2 diabetes mellitus Vitamin D deficiency, unspecified Surgical History Surgical History History of bladder surgery Bladder Sling Family History Family History Father Diabetes mellitus Hypertension Family history of elevated blood lipids Acute myocardial infarction Cerebrovascular accident Colon polyp Grandparent Diabetes mellitus Family history of elevated blood lipids Cerebrovascular accident, Onset Age: 50 Carcinoma of colon Family history of sudden , Onset Age: 50 Mother Hypertension Family history of malignant neoplasm of breast in first degree relative Sibling Hypertension Social History Social History Smoking status: Never smoker Alcohol intake: current Lack of Transportation: No Lack of Food: Never True Current Housing: I Have Housing Concerned About Future Housing: No Difficulty Paying Gas/Electric Bills: No Difficulty Paying for Meds: No Currently Unemployed: No Education: High School Diploma/GED Difficulty w/ Childcare or Family Care: No Living arrangements: with family Spiritual care concerns: No Exam Narrative: EXAMINATION OF ORGAN SYSTEMS/BODY AREAS: Constitutional: Vital signs per nursing GENERAL:[No acute distress, non-toxic appearing.] HEAD: Normal with no signs of head trauma. EYES: EOMI, conjunctiva normal ENT: Hearing grossly intact LUNGS: Nonlabored breathing. HEART: [Regular rate and rhythm] ABD: [Soft], [nontender to palpation] EXT: Normal range of motion SKIN: [No rashes or lesions.] NEURO: [Alert and oriented x 3. No gross focal sensory or strength deficits.] PSYCH: Normal affect Course Vital Signs Vital signs: Vital Signs Temperature 97.6 F 01/30/24 09:09 Pulse Rate 97 01/30/24 09:09 Respiratory Rate 14 01/30/24 09:09 Blood Pressure 141/97 H 01/30/24 09:09 Pulse Oximetry 100 01/30/24 09:09 Temperature 97.6 F 01/30/24 09:09 Pulse Rate 108 H 01/30/24 14:45 Respiratory Rate 38 H 01/30/24 14:45 Blood Pressure 116/69 01/30/24 14:45 Pulse Oximetry 94 01/30/24 14:45 MDM - Abdominal Pain MDM Narrative Medical decision making narrative: patient presenting with nausea, vomiting, abd pain; just increased mounjaro dose. Had K 2.7 and ?abnormal CT read? I did look over the CTA and did not see any obvious acute abnormality. Patient is also now denying any abdominal pain or nausea or vomiting. Right upper quadrant ultrasound obtained without any obvious acute abnormality other than fatty liver which have discussed with patient. We will work on replacing her potassium. I suspect most likely a side effect from Mounjaro. Repeat BMP now improved. Additional L of fluids provided. Long discussion with patient that she will need a follow-up with Gastroenterology to make sure that her labs level out, and that she should likely stop using the Mounjaro given the side effects for her. She is agreeable to this plan. Stable for discharge with return precautions. Lab Data 01/30/24 09:29 01/30/24 13:54 Labs: Lab Results 01/30/24 01/30/24 Range/Units 09:29 13:54 WBC 8.1 (4.5-10.0) K/mm3 RBC 5.17 (4.2-5.4) M/mm3 Hgb 14.9 (12.0-15.0) g/dL Hct 43.6 (37.0-47.0) % MCV 84.3 (80-100) fl MCH 28.8 (26-34) pg MCHC 34.2 (32-36) g/dl RDW 13.0 (11.5-14.5) % Plt Count 183 (150-375) k/mm3 MPV 10.9 H (7.4-10.4) fl Immature Gran % (Auto) 1.9 H (0-0.5) % Neut % (Auto) 83.8 H (45.5-73.1) % Lymph % (Auto) 6.3 L (18.3-44.2) % Baxter % (Auto) 5.8 (2.6-8.5) % Eos % (Auto) 1.6 (0-4.4) % Baso % (Auto) 0.6 (0.2-1.2) % Lymph # (Auto) 0.51 L (0.9-3.2) K/mm3 Baxter # (Auto) 0.5 (0.1-0.6) K/mm3 Eos # (Auto) 0.1 (0-0.3) K/mm3 Baso # (Auto) 0.1 (0.0-0.1) K/mm3 Abs Immat Gran (auto) 0.15 H (0.00-0.031) K/mm3 Absolute Neuts (auto) 6.7 (1.3-6.7) K/mm3 Absolute Nucleated RBC 0.000 (0.0-0.012) K/mm3 Nucleated RBC % 0.0 (0.0-0.2) % Sodium 128 L 128 L (137-145) mmol/L Potassium 2.7 L* 3.8 (3.4-5.0) mmol/L Chloride 80 L 85 L (98-107) mmol/L Carbon Dioxide 38 H 37 H (22-30) mmol/L Anion Gap 10 6 (4-12) mmol/L BUN 19 H 18 H (7-17) mg/dL Creatinine 0.90 0.60 L (0.7-1.0) mg/dL Estim Creat Clear Calc 73 106 ml/min Estimated GFR > 60 > 60 (59 - ) Glucose 201 H 129 H (65-110) mg/dL Calcium 8.7 8.5 (8.4-10.2) mg/dL Total Bilirubin 1.9 H (0.2-1.3) mg/dL AST 112 H (14-36) U/L ALT 96 H (6-35) U/L Alkaline Phosphatase 488 H (38-126) U/L Total Protein 8.0 (6.3-8.2) g/dL Albumin 4.0 (3.5-5.1) g/dL Lipase 80 (23-300) U/L Urine Color Dark yellow (Yellow) Urine Appearance Clear (Clear) Urine pH 6.5 (5.0-9.0) Ur Specific [place] 1.021 (1.001-1.035) Urine Protein 2+ H (Negative) mg/dL Urine Glucose (UA) Negative (Negative) mg/dL Urine Ketones Negative (Negative) mg/dL Ur Blood (Man) Negative (Negative) Urine Nitrate Negative (Negative) Urine Bilirubin 1+ H (Negative) Urine Urobilinogen 1.0 (<2.0) mg/dL Add Ur Microanalysis Reviewed Leukocyte Esterase Rfl 1+ H (Negative) TRACEE/UL Urine RBC 3-5 H (0-2) /hpf Urine WBC 0-5 (0-3) /hpf Ur Squamous Epith Cells Few (Few) /hpf Urine Bacteria None seen /hpf Urine Casts 6-10 Imaging Data Radiologist's impression: ITS Impressions Abdomen Ultrasound 01/30/24 10:54 IMPRESSION: Possible slices near to the neck of the gallbladder. Fatty infiltration of the liver. Otherwise, Unremarkable limited ultrasound of the abdomen. Discharge Plan Discharge Clinical Impression: Abnormal blood electrolyte level, Abnormal LFTs Patient Disposition: Home, Self-Care Condition: Stable Instructions: Hypokalemia (ED), Acute Nausea and Vomiting (ED), Transaminitis (ED) Additional Instructions: please follow-up with the corporate events director, you can always return to the emergency room if you have any nausea or vomiting or abdominal pain again. Please also doctor about your current Mounjaro dose as you may need to be adjusted if you are continuing to have issues. Prescriptions: New famotidine 20 mg tablet 20 mg PO DAILY Qty: 30 0RF ondansetron 4 mg tablet,disintegrating 4 mg PO Q8H PRN (Reason: nausea and vomiting) Qty: 10 0RF No Action albuterol sulfate 90 mcg/actuation HFA aerosol inhaler 2 puff INHALATION PRN PRN (Reason: Shortness Of Breath Or Wheezing) ondansetron 8 mg tablet,disintegrating 8 mg PO Q4-6H PRN (Reason: nausea and vomiting) Qty: 20 0RF Mounjaro 12.5 mg/0.5 mL pen injector 12.5 mg subcut WEEKLY Qty: 2 0RF magnesium 500 mg Tablet 500 mg PO DAILY zinc 50 mg Tablet 50 mg PO DAILY omeprazole magnesium [Prilosec OTC] 20 mg Tablet,Delayed Release (Dr/Ec) 20 mg PO DAILY (DME) cpap See Rx Instructions .Route .MEDSUPPLY Qty: 1 0RF Rx Instructions: Resmed AirSense 11 CPAP at 9 cm H2O, size small Resmed AirFit F20, CPAP filters/tubing and heated humidity bimatoprost 0.03 % drops with applicator 1 applic topical QHS Qty: 3 0RF Rx Instructions: place one drop on applicator and apply evenly along the skin of the upper eyelid at base of eyelashes once daily at bedtime; repeat procedure for second eye (use a clean applicator) cholecalciferol (vitamin D3) 1,250 mcg (50,000 unit) capsule 50,000 unit PO WEEKLY Qty: 12 0RF Rx Instructions: TAKE 1 CAPSULE BY MOUTH WEEKLY allopurinol 300 mg tablet 300 mg PO DAILY Qty: 90 1RF sertraline 100 mg tablet 100 mg PO DAILY Qty: 90 3RF Rx Instructions: TAKE 1 TABLET DAILY meloxicam 15 mg tablet See Rx Instructions .ROUTE .COMPLEX Qty: 90 1RF Dose Instruction: TAKE 1 TABLET DAILY Rx Instructions: TAKE 1 TABLET DAILY atenolol-chlorthalidone 100-25 mg tablet 1 tablet PO DAILY Qty: 90 1RF metformin 500 mg tablet 500 mg PO BID Qty: 180 1RF simvastatin 20 mg tablet 20 mg PO QHS Qty: 90 3RF alprazolam 0.25 mg tablet 0.25 mg PO QHS Qty: 90 0RF Follow-up/Referrals: Leonora Curry APRN [Primary Care Provider] - Jorge Clarke MD [Physician] - 3 Days
[2024-01-30 09:34] LABS: Basophils Absolute Auto 0.1 K/mm3 (0.0-0.1); Basophils Percent Auto 0.6 % (0.2-1.2); Eosinophils Absolute Auto 0.1 K/mm3 (0-0.3); Eosinophils Percent Auto 1.6 % (0-4.4); Hematocrit 43.6 % (37.0-47.0); Hemoglobin 14.9 g/dL (12.0-15.0); Immature Granulocyte Absolute 0.15 K/mm3 (0.00-0.031); Immature Granulocyte Percent A 1.9 % (0-0.5); Lymphocytes Absolute Auto 0.51 K/mm3 (0.9-3.2); Lymphocytes Percent Auto 6.3 % (18.3-44.2); Mean Corpuscular HGB Conc 34.2 g/dl (32-36); Mean Corpuscular Hemoglobin 28.8 pg (26-34); Mean Corpuscular Volume 84.3 fl (80-100); Mean Platelet Volume 10.9 fl (7.4-10.4); Monocytes Absolute Auto 0.5 K/mm3 (0.1-0.6); Monocytes Percent Auto 5.8 % (2.6-8.5); Neutrophils Absolute Auto 6.7 K/mm3 (1.3-6.7); Neutrophils Percent Auto 83.8 % (45.5-73.1); Platelet Count Result 183 k/mm3 (150-375); Red Blood Count 5.17 M/mm3 (4.2-5.4); White Blood Count 8.1 K/mm3 (4.5-10.0)
[2024-01-30 09:49] LABS: Add Urine Microscopic? YES; Appearance Urine Clear (Clear); Bacteria Urine None Seen /hpf; Bilirubin Urine 1+ (Negative); Blood Urine Negative (Negative); Color Urine Dark Yellow (Yellow); Glucose Urine UA Negative (Negative); Ketones Urine Negative (Negative); Leukocyte Esterase Ur 1+ LEU/UL (Negative); Need Manual Microscopic Reviewed; Nitrate Urine Negative (Negative); Protein Urine 2+ mg/dL (Negative); Specific Grav Ur 1.021 (1.001-1.035); Squamous Epithelial Cell Urine Few /hpf (Few); WBC Urine 0-5 /hpf (0-3); pH Urine 6.5 (5.0-9.0)
[2024-01-30 10:06] LABS: Alanine Aminotransferase 96 U/L (6-35); Alkaline Phosphatase 488 U/L (38-126); Anion Gap 10 mmol/L (4-12); Aspartate Amino Transferase 112 U/L (14-36); Bilirubin,Total 1.9 mg/dL (0.2-1.3); Blood Urea Nitrogen 19 mg/dL (7-17); Calcium 8.7 mg/dL (8.4-10.2); Carbon Dioxide 38 mmol/L (22-30); Chloride 80 mmol/L (98-107); Estimated CRCL calculation 73 ml/min; Estimated Glomerular Filt Rate > 60; Glucose 201 mg/dL (65-110); Lipase 80 U/L (23-300); Potassium 2.7 mmol/L (3.4-5.0); Sodium 128 mmol/L (137-145)
--- NOTE | 2024-01-30 10:15 | PC.NURSE ---
Pt in ultrasound at this time
[2024-01-30] MEDS: LACTATED RINGERS 1,000 ML 999 ML IV CONT (10:50)
[2024-01-30] MEDS: POTASSIUM CHLORIDE 20 MEQ ER TABLET 40 MEQ PO (10:51)
[2024-01-30] MEDS: POTASSIUM CHLORIDE 20 MEQ PACKET (FOR LIQUID) PO (11:32)
[2024-01-30] MEDS: KCL 20 MEQ/SW 100 ML 100 ML 50 MEQ IVPB (11:33)
[2024-01-30] MEDS: ONDANSETRON INJ 4 MG/2 ML VIAL IV PUSH (12:22)
[2024-01-30 14:20] LABS: Anion Gap 6 mmol/L (4-12); Blood Urea Nitrogen 18 mg/dL (7-17); Calcium 8.5 mg/dL (8.4-10.2); Carbon Dioxide 37 mmol/L (22-30); Chloride 85 mmol/L (98-107); Estimated CRCL calculation 106 ml/min; Estimated Glomerular Filt Rate > 60; Glucose 129 mg/dL (65-110); Potassium 3.8 mmol/L (3.4-5.0); Sodium 128 mmol/L (137-145)
[2024-01-30] MEDS: SODIUM CHLORIDE 0.9% IV 1,000 ML 999 ML IV CONT (14:20)
== END 2024-01-30 15:16 | disposition home or self-care (01) ==
PROVIDERS: Emergency Provider Emergency Medicine; PCP Nurse Practitioner Family
DX: E87.8 Other disorders of electrolyte and fluid balance, not elsewhere classified (principal); R74.01 Elevation of levels of liver transaminase levels; I10 Essential (primary) hypertension; J45.909 Unspecified asthma, uncomplicated; E11.9 Type 2 diabetes mellitus without complications; E78.00 Pure hypercholesterolemia, unspecified; E55.9 Vitamin D deficiency, unspecified; M19.019 Primary osteoarthritis, unspecified shoulder; M10.9 Gout, unspecified; G25.81 Restless legs syndrome; Z79.85 Long-term (current) use of injectable non-insulin antidiabetic drugs; Z79.899 Other long term (current) drug therapy; Z79.84 Long term (current) use of oral hypoglycemic drugs
CPT/HCPCS: 36415; 76705; 80048; 80053; 81001; 83690; 85025; 87077; 87086; 87186; 93005; 96361; 96365; 96375; 99284; A9270; J2405; J3480; J7030; J7120

== ENCOUNTER 2024-07-01 15:20 | Outpatient (CLI) | payer OTHER, SELFPAY ==
--- NOTE | ~2024-07-01 | MM_ITS ---
EXAMINATION: MM screening [facility] BI w vinicius HISTORY: Screening TECHNIQUE: Craniocaudal and mediolateral oblique 3-D tomosynthesis images were obtained and synthetic 2-D images were generated. CAD analysis was submitted and interpreted. COMPARISON: Comparison to multiple prior studies sequentially, with oldest reviewed study dated 01/24. BREAST PARENCHYMAL COMPOSITION: Not Dense: The breasts are almost entirely fatty. FINDINGS: There is no evidence of suspicious mass, calcification, or architectural distortion to sugg est malignancy in either breast. There has been no suspicious interval change. IMPRESSION: 1. No mammographic evidence of malignancy. 2. Recommend routine screening mammography in one year. BI-RADS Category 1: Negative Reviewed, dictated and finalized at location A.
--- OUTSIDE RECORDS SUMMARY | 2024-07-01 16:42 | XMS_ITS ---
Author Organization [facility] Address [address] [place] [address] Care Team Providers Care Dude Wrangler Name Role Phone Ketan Aiken Primary Care Provider Guerline Chavarria Unavailable [phone] REASON FOR VISIT Chronic upper airway symptoms concerning for uncontrolled atopic disease, nasal congestion and drainage that worsens in the Spring and Fall. Taking Zyrtec daily., Chronic lower airways symptoms concerning for possible asthma, occasional cough. Prescribed Breo by her PCP, which she is taking as-needed. NICOLASA use reported 1-2 times per week., Reports of four episodes of chest X-RAY confirmed pneumonia is the last 10 years. Medications Medication SIG (Take, Route, Frequency, Duration) Notes Start Date End Date Status Atenolol 100 MG 1 tablet Orally Once a day Active Ipratropium Tyler 0.06 % 2 sprays in e ach nostril Nasally Twice a day for 30 days Active Breo Ellipta 100-25 MCG/ACT 1 puff Inhalation Once a day Active Albuterol Sulfate HFA 108 (90 Base) MCG/ACT 1 puff as needed Inhalation every 4 hrs Active Simvastatin 20 MG 1 tablet in the even ing Orally Once a day Active ALPRAZolam 0.25 MG 1 tablet Orally Twic e a day Active Januvia 100 MG 1 tablet Orally Once a day Active Vitamin D Active Allopurinol 200 MG 1 tablet Orally Once a day Active metFORMIN HCl 500 MG 1 tablet with a angel l Orally Once a day Active Sertraline HCl 100 MG 1 tablet Orally Once a day Active PriLOSEC Active Zinc 50 MG 1 tablet Orally Once a day Active Fiber Active Magnesium Active Mounjaro 5 MG/0.5ML as directed Subcutaneous Active Meloxicam 15 MG 1 tablet Orally Once a day Active [place] 3 1200 MG 1 capsule Orally Thr ee times a day Active Encounters Encounter Location Date Provider Diagnosis [facility] [address] [place] [address] 01/07/2024 Guerline Alvarado Hypertrophy of nasal turbinates J34.3 ; Chronic rhinitis J31.0 ; Personal history of pneumonia (recurrent) Z87.01 ; Vitamin D deficiency, unspecified E55.9 ; Cough, unspecified R05.9 and Essential (primary) hypertension I10 Assessments Encounter Date Diagnosis (ICD Code) Assessment Notes Treatment Notes Treatment Clinical Notes Section Notes 01/07/2024 Hypertrophy of nasal turbinates (ICD-10 - J34.3) Krys endorses upper airway symptoms concerning for uncontrolled atopic disease. Sh perceives worse symptoms in the Spring and Fall. She takes daily Zyrtec. She has three cats and two dogs in her home. - Krys underwent skin testing to aeroallergens today, however histamine controls showed no significant wheal or flare, indicating pharmaceutical blockage of the receptor. Krys reports holding Zyrtec for the last 7 days. - Due to this, will order aeroallergen ImmunoCaps for further evaluation. - Will start trial of ipratropium bromide. - Follow-up in 4-6 weeks for laboratory review 01/07/2024 Chronic rhinitis (ICD-10 - J31.0) See plan above 01/07/2024 Personal history of pneumonia (recurrent) (ICD-10 - Z87.01) Krys reports four episodes of chest X-RAY confirmed pneumonia in the last ten-years meeting JMF criteria for modified PIDD work-up. - Will plan on boosters/vitamin D supplementation based on results 01/07/2024 Vitamin D deficiency, unspecified (ICD-10 - E55.9) For immune work-up as above 01/07/2024 Cough, unspecified (ICD-10 - R05.9) Krys reports frequent cough, she denies shortness of breath or wheezing. States this has been ongoing for many years, no prior pulmonary evaluation. She is currently prescribed Breo by her PCP, which she takes as-needed. She also has an albuterol that she also uses as-needed, 1-2 times per week on average. No history of hospitalizations due to lower airway symptoms. - Discussed obtaining spirometry today, however deferred due to time constraints. Plan to obtain at next visit, Krys in agreement. - Discussed using Breo daily as opposed to as-needed. She is aware to rinse her mouth after use. - Continue NICOLASA as-needed. - Follow-up in 4-6 weeks for spirometry and further evaluation and management 01/07/2024 Essential (primary) hypertension (ICD-10 - I10) BP elevated today without symptoms of urgency or emergency. Continue serial checks and follow-up with PCP 01/07/2024 Other Plan Of Treatment Medication Medication Name Sig Start Date Stop Date Notes Atenolol 100 MG 1 tablet Orally Once a day Ipratropium Tyler 0.06 % 2 sprays in e ach nostril Nasally Twice a day for 30 days Breo Ellipta 100-25 MCG/ACT 1 puff Inhalation Once a day Albuterol Sulfate HFA 108 (9 0 Base) MCG/ACT 1 puff as needed Inhalation every 4 hrs Treatment Notes Assessment Notes Hypertrophy of nasal turbinates Krys endorses upper airway symptoms concerning for uncontrolled atopic disease. Sh perceives worse symptoms in the Spring and Fall. She takes daily Zyrtec. She has three cats and two dogs in her home. - Krys underwent skin testing to aeroallergens today, however histamine controls showed no significant wheal or flare, indicating pharmaceutical blockage of the receptor. Krys reports holding Zyrtec for the last 7 days. - Due to this, will order aeroallergen ImmunoCaps for further evaluation. - Will start trial of ipratropium bromide. - Follow-up in 4-6 weeks for laboratory review Chronic rhinitis See plan above Personal history of pneumonia (recurrent ) Krys reports four episodes of chest X-RAY confirmed pneumonia in the last ten-years meeting JMF criteria for modified PIDD work-up. - Will plan on boosters/vitamin D supplementation based on results Vitamin D deficiency, unspecified For im mune work-up as above Cough, unspecified Krys reports frequent cough, she denies shortness of breath or wheezing. States this has been ongoing for many years, no prior pulmonary evaluation. She is currently prescribed Breo by her PCP, which she takes as-needed. She also has an albuterol that she also uses as-needed, 1-2 times per week on average. No history of hospitalizations due to lower airway symptoms. - Discussed obtaining spirometry today, however deferred due to time constraints. Plan to obtain at next visit, Krys in agreement. - Discussed using Breo daily as opposed to as-needed. She is aware to rinse her mouth after use. - Continue NICOLASA as-needed. - Follow-up in 4-6 weeks for spirometry and further evaluation and management Essential (primary) hypertension BP elev ated today without symptoms of urgency or emergency. Continue serial checks and follow-up with PCP Next Appt Details Follow Up: 4-6 Weeks, Reason : Evaluation and Management, Spirometry/Flow Volume Loop Progress Notes * Krys CAMARGODOB:1965 (58 yo F)Acc No.[id number]:01/07/2024 Progress Notes Patient: Krys YAO Provider: Dulce Alvarado DNP MENDER HAND-C :1965 A ge:58 Y S ex:Female Date:01/07/2024 [id number] Pcp:Ketan Aiken Subjective: * Chief Complaints: * 1 . Chronic upper airway symptoms concerning for uncontrolled atopic disease, nasal congestion and drainage that worsens in the Spring and Fall. Taking Zyrtec daily.. 2. Chronic lower airways symptoms concerning for possible asthma, occasional cough. Prescribed Breo by her PCP, which she is taking as-needed. NICOLASA use reported 1-2 times per week.. 3. Reports of four episodes of chest X-RAY confirmed pneumonia is the last 10 years.. * HPI: * Introduction: I had the pleasure of seeing Hailey Camargo, a 58-year-old female with pastmedical history significant for diabetes mellitus, hypertension,hypercholesterolemia and anxiety, who presents for allergy evaluation andmanagement. She is alone for today's visit. Krys endorses upper airwaysymptoms concerning for uncontrolled atopic disease. Descriptors of her symptomsare outlined below. Her symptoms seem to worsen in the Spring and Fall. She takesdaily Zyrtec with minimal benefit. She has three cats and two dogs in her home.She recalls undergoing allergy testing many years ago. She has neverundergone allergen immunotherapy. A dditionally, Krys endorse frequent cough, she denies shortnessof breath or wheezing. She is currently prescribed Breo by her PCP, taking thison an as- needed basis, which she reports is infrequent. She also has analbuterol inhaler that she also uses as-needed, which is 1-2 times per week. Nohistory of hospitalizations due to lower airway symptoms, though Krys reportsfour episodes of chest X-RAY confirmed pneumonia in the last 10 years. Last ofwhich was approximately two years ago. ACT is 21. No history of pulmonaryevaluation. She denies smoking history. She denies a history of physician-diagnosed recurrent sinusitis or otitis media, recurrent pneumonia, asthma/RAD, eczema, food allergies, urticaria/angioedema, medication allergies, contact dermatitis, latex allergy, eosinophilic esophagitis or stinging insect hypersensitivity. Today, she reports no fevers, chills, night sweats or other constitutional symptoms. * Allergic Rhinoconjunctivitis: Allergic rhinitis D o you have or suspect you have allergic rhinitis (itchy eyes, sneezing, congestion or runny nose triggered by allergies)? N o W hich areas and what symptoms are involved? Please fill out each section below as needed. e yes,cough,nose,sore throat,sinuses W hich of the following trigger your allergic rhinitis symptoms? t ree pollen,grass pollen,weed pollen,laughter,bronchitis,mold,perfumes,hair spray,detergents,spring (season),fall (season) D o you have any of the following other symptoms associated with your allergic rhinitis? e xcessive daytime sleepiness,loud snoring,restless sleep Eyes S pecific affected area: b oth (bilateral) O ccurence? c ontinuous W hen does this mostly occur? a nytime S ymptoms: i tching,redness E ffective treatments: o ral antihistamines (Zyrtec or Daphne or Claritin) Ears S pecific affected area: b oth (bilateral) H ow often? i ntermittent S ymptoms: p lugged Nose S pecific area affected: b oth (bilateral) O ccurence? c ontinuous W hen does this mostly occur? a nytime S ymptoms? c ongestion,sneezing jags,postnasal drainage,sinus infection,awaken very congested in the a.m. E ffective treatments? o ral antihistamines (Zyrtec or Daphen or Claritin) Sinuses D o you have sinus pain? Y es H ave you lost sense of taste? N o W here? c enter of forehead above eyes (frontal) H ave you been treated with antibiotics for sinusitis? N o H ave any of the following treatments improved your sinus symptoms? o ral antihistamines (Zyrtec or Daphne) H ave you ever undergone sinus surgery? N o Sore Throat O ccurence? c ontinuous W hen does this usually occur? a nytime E ffective treatments? n caro steroid sprays (Flonase or Nasonex or Veramyst),oral antihistamines (Zyrtec or Daphne) Cough F requency: d aily S putum color? c lear,yellow E ffective treatments? n caro spray steroid (Flonase or Nasonex),reflux medications (TUMS or Zantac or Prilosec) Headache O ccurence? i ntermittent H ow frequent? w eekly W hat time of day does this mostly occur? p .m. * Asthma: Cough D o you have a recurrent cough? N o W hat color is your sputum? y ellow Wheezing D o you have recurrent wheezing or a history of wheezing sometime in your life? Y es D id you have symptoms of asthma as a child??No D id you have frequent respiratory infections as a child? Y es W ere you ever hospitalized in the first 12 months of life for a respiratory infection in childhood? N o D o you still have wheezing? Y es H ow often do you get it? w eekly I s your wheezing changing? s jw L ist months when wheezing is worse: A pril,July,August,September,October,November W hat triggers your wheezing? e xercise,tree pollen,grass pollen,weed pollen,sinus infections,bronchitis,laughter,perfumes,hairspray,detergents,soaps Nocturnal Symptoms D o you have any of the following respiratory symptoms at night? c oughing that interrupts sleep,significant phlegm production during the night,shortness of breath which awakens you at night or interrupts sleep,wheezing or feeling of chest tightness,inability to sleep lying down flat due to cough or shortness of breath Physical Performance I f there are limitations, what symptoms limit further activity? c ough D o you have any of the following additional problems? e xcessive daytime sleepiness,loud snoring,restless sleep Effective treatments for cough and or wheezing O TC cough medicine [facility] follow-up: Asthma Control Test (Adult - Age 12 and older) I n the past 4 weeks, how much of the time did your asthma keep you from getting as much done at work, school or at home? N one of the time (5) D uring the past 4 weeks, how often have you had shortness of breath? A little of the time (4) D uring the past 4 weeks, how often did your asthma symptoms (wheezing, coughing, shortness of breath, chest tightness or pain) wake you up at night or earlier than usual in the morning? O nce or twice (4) D uring the past 4 weeks, how often have you used your rescue inhaler or nebulizer medication (such as albuterol)? O nce a week or less (4) H ow would you rate your asthma control during the past 4 weeks? W ell controlled (4) T otal Score: (minimum = 5, maximum = 25; Sum of all 5 questions above)) 2 1 * Infections: Vaccination History H ave you ever had a flu shot? N o H ave you ever had a pneumococcal vaccine (BLR-Cdpcste-Ixaxhvlvv)? N o H ave you ever had a tetanus vaccine (ISjv-Vlov-Ha)? Y es Ear Infections D o you have frequent ear infections? N o Sinusitis (Sinus infections) D o you have frequent episodes of sinusitis??No Sinus Symptoms and Surgery D o you have chronic or recurrent sinus symptoms? N o D o you have sinus pain? Y es D o you have a loss of sense of taste? N o H ave you used any of the following treatments for your sinuses? n caro spray decongestants,oral antihistamines W hich provided benefit? o ral antihistamines H ave you ever had a sinus CT or X-Ray? N o H ave your ever undergone sinus surgery? N o Bronchitis History D o you get frequent bronchitis? Y es H ave you been treated with antibiotics for bronchitis? Y es H ave you been hospitalized for treatment??No Pneumonia History H ave you ever had pneumonia or recurrent pneumonia? Y es H ow many episodes in your entire life? 3 H ow many episodes in the past 12 months? 0 H ave you been treated with antibiotics for pneumonia? Y es W ere antibiotics oral, IV or both? o ral H ave you been hospitalized for treatment??No H ave you been seen by an shoe ironer or asparagus cutter to evaluate your immune system function for recurrent pneumonia N o Skin and Other Infections D o you get frequent skin infections (cellulitis)? N o D o you get any other frequent infections??No * Other Rash and Contact Dermatitis: Other rashes and contact dermatitis H ave you ever had any other form of rash or contact dermatitis? N o * Atopic dermatitis: Atopic dermatitis - Eczema D o you have chronic or recurrent atopic dermatitis or eczema? N o * Urticaria: Urticaria (hives) D o you have recurrent hives? N o * Medication allergy: Medication Allergy D o you feel you are allergic to any medications? N o H ave you been evaluated by an shoe ironer previously for possible drug allergy? N o * Stinging Insects: Insect Reaction(s) H ave you ever experienced a stinging insect reaction? N o * Prior Evaluations and Treatments: Prior evaluations and treatments H ave you been evaluated by another physician for allergic rhinitis, cough, wheezing, asthma, urticaria, angioedema, atopic dermatitis or eczema??No H ave you ever been on allergy immunotherapy??No H ave you ever passed out during a blood draw, shot or vaccination? N o Last dose of antihistamine: H as your antihistamine been effective in controlling any of your symptoms? N o D o you take any other psychiatric medication??No * Food allergy: Food Allergy D o you currently have or have you ever had any proven or suspected food allergies? Y es W hat food(s)? o ther food not listed W hat symptoms do you experience when foods are ingested? d iarrhea H ow quickly do symptoms come on after food ingestion? w ithin 20 minutes H ave you ever been hospitalized or treated urgently for symptoms of a severe allergic reaction (anaphylaxis)? N o D o you carry self-injectable epinephrine for your prior reaction(s)? N o H ave you previously seen an shoe ironer for evaluation of possible food allergy? N o * Eosinophilic GI: Eosinophilic Gastrointestinal Disease D o you have difficulty swallowing foods or have you previously needed to have your esophagus dilated for food impaction or have you been diagnosed with eosinophilic gastrointestinal disease? N o * Angioedema: Angioedema (swelling) D o you have recurrent swelling (angioedema)??No * Headache: Intake: Headache Onset A ge of onset for bothersome headaches? 1 0 Intake: Headache Previous Testing H ave you had any previous testing related to your headache or migraine N o Intake: Headache Associated Conditions D o you have concerns about seasonal or year-round allergies? Y es D o you have concerns about sleep or sleep quality? N o D o you have concerns about your mood or do you have a history of depression? N o D o you have neck pain or stiffness? N o D o you have a history of prior concussion??No D o you have concerns about hormone imbalances? N o D o you have sinus problems? Y es MIDAS (Migraine Disability Assessment) H ow many days in the last 3 months did you miss work or school because of your headaches? 0 H ow many days in the last 3 months was your productivity at work or school reduced by half or more because of your headaches? (Do not include days you counted in Question 1 where you missed work or school.) 0 T otal score (range: 0-90) 0 HIT-6 (Headache Impact Test) W hen you have headaches, how often is the pain severe? N ever (6) H ow often do headaches limit your ability to do usual daily activities including household work, work, school, or social activities? N ever (6) PHQ-9 (Patient Health Questionnaire-9) O erika the last 2 weeks, how often have you had little interest or pleasure in doing things? N ot at all (0) * ROS: A LLERGY: runny nose Y es. s cratchy throat Y es. i tchy eyes Y es. e ar fullness N o. s inus congestion Y es. P ositive p er the HPI and history, otherwise unremarkable. S PECIAL SENSES: Positve for n one. c ataracts Y es. g laucoma?No. l oss of hearing Y es. i tching in ears N o. r inging in ears N o.?loss of balance N o. l oss of smell N o. e xcessive tearing N o. i tching eyes Y es. l oss of taste N o. c onjunctivitis N o. e ar infections N o. C ONSTITUTIONAL: weight gain Y es. l oss of appetite N o. f ever?No. w eakness N o. w eight loss N o. f atigue Y es. n ight sweats?Yes. P ositive for n one. E NT: cold N o. c ough Y es. e pistaxis Y es.?hearing loss Y es. c hange in voice Y es. s ore throat Y es. r inging in ears N o. s inus pain N o. P ositive p er the HPI and history, otherwise unremarkable. R ESPIRATORY: shortness of breath N o. c hest pain N o. c hest congestion Y es. c ough Y es. P ositive p er the HPI and history, otherwise unremakable. O PHTHALMOLOGY: diminished vision N o. e ye irritation Y es. d rainage from eyes N o. b lurring of vision N o. s easonal eye sx Y es. l oss of vision N o. P ositive for p er the HPI and history, otherwise unremarkable. i tching Y es. s ensitivity to light N o. d ischarge N o. w atering Y es.?swelling of the eyelids N o. r edness Y es. E NDOCRINOLOGY: fatigue Y es. p olydipsia Y es. p olyuria Y es. w eight loss N o. s leep disturbance Y es. c old intolerance N o. h eat intolerance Y es. d iabetes Y es. P ositive for n one. C ARDIOLOGY: chest pain N o. p alpitations N o. l eg edema?No. d izziness N o. s hortness of breath N o. P ositive for n one. ? G ASTROENTEROLOGY: dysphagia N o. a bdominal pain N o. n ausea?No. v omiting N o. c onstipation N o. d iarrhea Y es. b lood in stool?No. i ndigestion Y es. h emorrhoids Y es. P ositive for n one. ? U ROLOGY: difficulty urinating N o. b lood in urine N o. f requent urination Y es. u rinary incontinence Y es. v oiding dysfunction N o.?recurrent UTI N o. P ositive for n one. D ERMATOLOGY: rash N o. m ole Y es. l umps N o. d ry or sensitive skin Y es. h jeannine (urticaria) N o. a cne N o. s kin cancer N o. P ositive for p er the HPI and history, otherwise unremakable. N EUROLOGY: headache Y es. t ingling numbness N o. s eizures N o. i nsomnia Y es. m sis loss Y es. d izziness N o. g ait abnormality N o. P ositive for n one. s yncope N o. H EMATOLOGY/LYMPH: Positive for n one. M USCULOSKELETAL: joint swelling N o. j oint pain N o. l eg cramps N o. j oint stiffness N o. s ciatica N o. o steoporosis N o. f racture N o. c arpal tunnel N o. g out Y es. P ositive for n one. ? P SYCHOLOGY: high stress level N o. d epression Y es. s leep disturbances Y es. s uicidal ideation N o. e ating disorder N o. m ental or physical abuse N o. a nxiety Y es. P ositive for n one. F EMALE REPRODUCTIVE: heavy periods N o. h ot flashes Y es. a bnormal vaginal discharge N o. s exually active N o. i nfertility N o. f requent yeat infections N o. p elvic pain N o. b reast pain N o. n ipple discharge No. A re you ? N o. A re you planning on a future pregancy? N o. ? A ll other review of systems per the HPI and history, otherwise unremarkable. * Medical History: * Medications: T aking Mounjaro 5 MG/0.5ML Solution Pen-injector as directed Subcutaneous , Taking Meloxicam 15 MG Tablet 1 tablet Orally Once a day , Taking [place] 3 1200 MG Capsule 1 capsule Orally Three times a day , Taking Fiber , Taking Magnesium , Taking PriLOSEC , Taking Zinc 50 MG Tablet 1 tablet Orally Once a day , Taking Sertraline HCl 100 MG Tablet 1 tablet Orally Once a day , Taking Allopurinol 200 MG Tablet 1 tablet Orally Once a day , Taking Januvia 100 MG Tablet 1 tablet Orally Once a day , Taking Vitamin D , Taking ALPRAZolam 0.25 MG Tablet 1 tablet Orally Twice a day , Taking metFORMIN HCl 500 MG Tablet 1 tablet with a meal Orally Once a day , Taking Simvastatin 20 MG Tablet 1 tablet in the evening Orally Once a day , Taking Breo Ellipta 100-25 MCG/ACT Aerosol Powder Breath Activated 1 puff Inhalation Once a day , Taking Albuterol Sulfate HFA 108 (90 Base) MCG/ACT Aerosol Solution 1 puff as needed Inhalation every 4 hrs , Taking Ipratropium Tyler 0.06 % Solution 2 sprays in each nostril Nasally Twice a day , Taking Atenolol 100 MG Tablet 1 tablet Orally Once a day Objective: * Vitals: * Examination: G eneral examination: General appearance: p leasant, well-developed, well-nourished, female, i n no apparent distress, speaking in full sentences. HEENT: c onjunctiva are normal bilaterally, TMs without evidence of acute infection, turbinates 2+ swollen and pale inferiorly bilaterally, clear rhinorrhea is present, no polyps noted, no septal perforation, posterior oropharynx is clear without exudates, erythema on pharyngeal wall, no exudates, no tongue swelling, and uvula is midline. Oral cavity: n ormal, no lesions. Breasts : n ot performed. Heart: R RR, S1-S2, no murmurs, no rubs, no gallops. Lungs: c lear to auscultation in all lung moreno, no wheezes, no crackles, no rhonchi. Neurologic exam: u nremarkable. Skin: n ormal, no visible rash, dermatographism, urticaria, angioedema. Back: n ormal. Extremities: n ormal ROM, no clubbing, no cyanosis, no edema. Genitalia: n ot performed. Assessment: * Assessment: 1. H ypertrophy of nasal turbinates - J34.3 (Primary) 2 . C hronic rhinitis - J31.0 3 . P ersonal history of pneumonia (recurrent) - Z87.01 ?4. V itamin D deficiency, unspecified - E55.9 5 . C ough, unspecified - R05.9 6 . E ssential (primary) hypertension - I10 Plan: * Treatment: 2. C hronic rhinitis Notes: See plan above 3. P ersonal history of pneumonia (recurrent) Notes: Krys reports four episodes of chest X-RAY confirmed pneumonia in the last ten-years meeting F criteria for modified PIDD work-up. - Will plan on boosters/vitamin D supplementation based on results 4. V itamin D deficiency, unspecified Notes: For immune work-up as above 5. C ough, unspecified Continue Breo Ellipta Aerosol Powder Breath Activated, 100-25 MCG/ACT, 1 puff, Inhalation, Once a day; C ontinue Albuterol Sulfate HFA Aerosol Solution, 108 (90 Base) MCG/ACT, 1 puff as needed, Inhalation, every 4 hrs. Notes: Krys reports frequent cough, she denies shortness of breath or wheezing. States this has been ongoing for many years, no prior pulmonary evaluation. She is currently prescribed Breo by her PCP, which she takes as-needed. She also has an albuterol that she also uses as-needed, 1-2 times per week on average. No history of hospitalizations due to lower airway symptoms. - Discussed obtaining spirometry today, however deferred due to time constraints. Plan to obtain at next visit, Krys in agreement. - Discussed using Breo daily as opposed to as-needed. She is aware to rinse her mouth after use. - Continue NICOLASA as-needed. - Follow-up in 4-6 weeks for spirometry and further evaluation and management 6. E ssential (primary) hypertension Continue Atenolol Tablet, 100 MG, 1 tablet, Orally, Once a day. Notes: BP elevated today without symptoms of urgency or emergency. Continue serial checks and follow-up with PCP * Procedure Codes: 9 5004 PRICK TESTS, Units: 72.00 , 25740 PT-FOCUSED TH RISK ASSMT, G8427 DOC MEDS VERIFIED W/PT OR RE * Preventive Medicine: Counseling: D iet a s tolerated. E xercise C ontinue activity as usual. M edication instruction: W atch for side effects of prescribed medications, Nasal steroid/antihistamine instruction: avoid septum. E ducation: G ENERAL EDUCATION: Our staff spent an additional 30 minutes in direct contact with the patient educating them on their current diagnoses and proper treatment and prevention of symptoms and the proper use of medications. P atient education material sent to portal? Y es C are goal follow up plan BMI management provided Y es Above Normal BMI Follow-up D ietary management education, guidance, and counseling B P Management: LIFESTYLE RECOMMENDATION: H ypertension education REFERRAL TO ALTERNATIVE / PRIMARY CARE PROVIDER: R eferral to general practitioner * Follow Up: 4 -6 Weeks (Reason: Evaluation and Management, Spirometry/Flow Volume Loop) * Billing Information: * Visit Code: 80816 Office Visit, New Pt., Level 4. Modifiers: 25 * Procedure Codes: 16734 PRICK TESTS. Units: 72.00. 68357 PT-FOCUSED HLTH RISK ASSMT. G8427 DOC MEDS VERIFIED W/PT OR RE. * Electronic signature of Guerline Alvarado DNP, FNP-C on 07/01/2024 at 04:42 PM CDT Sign off status: Pending * Provider: SUAD Cerna-C Date: Generated for Judy Kinsey/Alexi on: 0 07/01/2024 04:42 PM CDT History and Physical Notes * HPI (History of Present Illness) Category Sub-Category Detail Notes Category Not es *Introduction I had the pleasure o f seeing Krys Camargo, a 58-year-old female with past medical history significant for diabetes mellitus, hypertension, hypercholesterolemia and anxiety, who presents for allergy evaluation and management. She is alone for today's visit. Krys endorses upper airway symptoms concerning for uncontrolled atopic disease. Descriptors of her symptoms are outlined below. Her symptoms seem to worsen in the Spring and Fall. She takes daily Zyrtec with minimal benefit. She has three cats and two dogs in her home. She recalls undergoing allergy testing many years ago. She has never undergone allergen immunotherapy. Additionally, Krys endorse frequent cough, she denies shortness of breath or wheezing. She is currently prescribed Breo by her PCP, taking this on an as-needed basis, which she reports is infrequent. She also has an albuterol inhaler that she also uses as-needed, which is 1-2 times per week. No history of hospitalizations due to lower airway symptoms, though Krys reports four episodes of chest X-RAY confirmed pneumonia in the last 10 years. Last of which was approximately two years ago. ACT is 21. No history of pulmonary evaluation. She denies smoking history. She denies a history of physician-diagnosed recurrent sinusitis or otitis media, recurrent pneumonia, asthma/RAD, eczema, food allergies, urticaria/angioedema, medication allergies, contact dermatitis, latex allergy, eosinophilic esophagitis or stinging insect hypersensitivity. Today, she reports no fevers, chills, night sweats or other constitutional symptoms Asthma follow-up Asthma Control Test (Adult - Age 12 and older) In the past 4 weeks, how much of the time did your asthma keep you from getting as much done at work, school or at home?: None of the time (5) During the past 4 weeks, how often have you had shortness of breath?: A little of the time (4) During the past 4 weeks, how often did your asthma symptoms (wheezing, coughing, shortness of breath, chest tightness or pain) wake you up at night or earlier than usual in the morning?: Once or twice (4) During the past 4 weeks, how often have you used your rescue inhaler or nebulizer medication (such as albuterol)?: Once a week or less (4) How would you rate your asth ma control during the past 4 weeks?: Well controlled (4) Total Score: (minimum = 5, maximum = 25; Sum of all 5 questions above)): 21 *Allergic Rhinoconjunctivitis Eyes Specific affected area:: both (bilateral) Occurence?: continuous When does this mostly occur?: anytime Symptoms:: itching,redness Effective treatments:: oral antihistamin es (Zyrtec or Daphne or Claritin) Ears Specific affected area:: both (b ilateral) How often?: intermittent Symptoms:: plugged Cough Frequency:: daily Sputum color?: clear,yellow Effective treatments?: nasal spray steroid (Flonase or Nasonex),reflux medications (TUMS or Zantac or Prilosec) Nose Specific area affected:: both (b ilateral) Occurence?: continuous When does this mostly occur?: anytime Symptoms?: congestion,sneezi ng jags,postnasal drainage,sinus infection,awaken very congested in the a.m. Effective treatments?: oral antihistamin es (Zyrtec or Daphne or Claritin) Sore Throat Occurence?: continuous When does this usually occur?: anytime Effective treatments?: nasal steroid sprays (Flonase or Nasonex or Veramyst),oral antihistamines (Zyrtec or Daphne) Headache Occurence?: intermittent How frequent?: weekly What time of day does this mostly occur? : p.m. Sinuses Do you have sinus pain?: Yes Have you lost sense of taste?: No Where?: center of forehead above eyes (frontal) Have you been treated with antibiotics f or sinusitis?: No Have any of the following tr eatments improved your sinus symptoms?: oral antihistamines (Zyrtec or Daphne) Have you ever undergone sinus surgery?: No Allergic rhinitis Do you have or suspe ct you have allergic rhinitis (itchy eyes, sneezing, congestion or runny nose triggered by allergies)?: No Which areas and what symptoms are involved? Please fill out each section below as needed.: eyes,cough,nose,sore throat,sinuses Which of the following trigger your allergic rhinitis symptoms?: tree pollen,grass pollen,weed pollen,laughter,bronchitis,mold,perfumes,hair spray,detergents,spring (season),fall (season) Do you have any of the following other symptoms associated with your allergic rhinitis?: excessive daytime sleepiness,loud snoring,restless sleep *Asthma Cough Do you have a recurrent cough?: No What color is your sputum?: yellow Effective treatments for cou gh and or wheezing OTC cough medicine: Delsym Wheezing Do you have recurren t wheezing or a history of wheezing sometime in your life?: Yes Did you have symptoms of asthma as a chi ld?: No Did you have frequent respiratory infect ions as a child?: Yes Were you ever hospitalized i n the first 12 months of life for a respiratory infection in childhood?: No Do you still have wheezing?: Yes How often do you get it?: weekly Is your wheezing changing?: same List months when wheezing is worse:: Jun,July,August,September,October,November What triggers your wheezing? : exercise,tree pollen,grass pollen,weed pollen,sinus infections,bronchitis,laughter,perfumes,hairspray,detergents,soaps Nocturnal Symptoms Do you have any of t he following respiratory symptoms at night?: coughing that interrupts sleep,significant phlegm production during the night,shortness of breath which awakens you at night or interrupts sleep,wheezing or feeling of chest tightness,inability to sleep lying down flat due to cough or shortness of breath Physical Performance If there are limita tions, what symptoms limit further activity?: cough Do you have any of the follo wing additional problems?: excessive daytime sleepiness,loud snoring,restless sleep *Infections Vaccination History Have you ever had a flu sh ot?: No Have you ever had a pneumococcal vaccine (LYA-Azkvshd-Bunlbwjnl)?: No Have you ever had a tetanus vaccine (DTa p-Tdap-Td)?: Yes Ear Infections Do you have frequent ear infecti ons?: No Sinusitis (Sinus infections) Do you have frequen t episodes of sinusitis?: No Sinus Symptoms and Surgery Do you have chronic o r recurrent sinus symptoms?: No Do you have sinus pain?: Yes Do you have a loss of sense of taste?: N o Have you used any of the fol lowing treatments for your sinuses?: nasal spray decongestants,oral antihistamines Which provided benefit?: oral antihistam pia Have you ever had a sinus CT or X-Ray?: No Have your ever undergone sinus surgery?: No Bronchitis History Do you get frequent bronchiti s?: Yes Have you been treated with antibiotics for bronchitis?: Yes Have you been hospitalized for treatment?: No Pneumonia History Have you ever had pneumonia or recurrent pneumonia?: Yes How many episodes in your entire life?: 3 How many episodes in the past 12 months?: 0 Have you been treated with antibiotics for pneumonia? : Yes Were antibiotics oral, IV or both?: oral Have you been hospitalized for treatment?: No Have you been seen by an shoe ironer or asparagus cutter to evaluate your immune system function for recurrent pneumonia: No Skin and Other Infections Do you get frequent sk in infections (cellulitis)?: No Do you get any other frequent infections ?: No *Other Rash and Contact Dermatitis Other rashes and contact dermatitis Have you ever had any other form of rash or contact dermatitis?: No *Atopic dermatitis Atopic dermatitis - Eczema Do you have chronic or recurrent atopic dermatitis or eczema?: No *Urticaria Urticaria (hives) Do you have re current hives?: No *Medication allergy Medication Allergy Do you fe el you are allergic to any medications? : No Have you been evaluated by a n shoe ironer previously for possible drug allergy?: No *Stinging Insects Insect Reaction(s) Have you ev er experienced a stinging insect reaction? : No *Prior Evaluations and Treatments Prior evaluations and treatments Have you been evaluated by another physician for allergic rhinitis, cough, wheezing, asthma, urticaria, angioedema, atopic dermatitis or eczema?: No Have you ever been on allergy immunother apy?: No Have you ever passed out during a blood draw, shot or vaccination?: No Last dose of antihistamine: Has your ant ihistamine been effective in controlling any of your symptoms?: No Do you take any other psychiatric medica tion?: No *Food allergy Food Allergy Do you currently have or have you ever had any proven or suspected food allergies?: Yes What food(s)?: other food not listed What symptoms do you experience when foods are ingested?: diarrhea How quickly do symptoms come on after food ingestion?: within 20 minutes Have you ever been hospitalized or treated urgently for symptoms of a severe allergic reaction (anaphylaxis)?: No Do you carry self-injectable epinephrine for your prior reaction(s)?: No Have you previously seen an shoe ironer for evaluation of possible food allergy?: No *Eosinophilic GI Eosinophilic Gastroi ntestinal Disease Do you have difficulty swallowing foods or have you previously needed to have your esophagus dilated for food impaction or have you been diagnosed with eosinophilic gastrointestinal disease?: No *Angioedema Angioedema (swelling) Do you hav e recurrent swelling (angioedema)?: No *Headache Intake: Headache Onset Age of on set for bothersome headaches?: 8 MIDAS (Migraine Disability Assessment) H ow many days in the last 3 months did you miss work or school because of your headaches?: 0 How many days in the last 3 months was your productivity at work or school reduced by half or more because of your headaches? (Do not include days you counted in Question 1 where you missed work or school.): 0 Total score (range: 0-90): 0 HIT-6 (Headache Impact Test) When you flores ve headaches, how often is the pain severe?: Never (6) How often do headaches limit your ability to do usual daily activities including household work, work, school, or social activities?: Never (6) PHQ-9 (Patient Health Questionnaire-9) O erika the last 2 weeks, how often have you had little interest or pleasure in doing things?: Not at all (0) Intake: Headache Previous Testing Have y ou had any previous testing related to your headache or migraine: No Intake: Headache Associated Conditions D o you have concerns about seasonal or year-round allergies?: Yes Do you have concerns about sleep or slee p quality?: No Do you have concerns about y our mood or do you have a history of depression?: No Do you have neck pain or stiffness?: No Do you have a history of prior concussio n?: No Do you have concerns about hormone imbal ances?: No Do you have sinus problems?: Yes Examination Category Sub-Category Detail Notes Category Not es General examination HEENT: conjunctiva are normal bilaterally, TMs without evidence of acute infection, turbinates 2+ swollen and pale inferiorly bilaterally, clear rhinorrhea is present, no polyps noted, no septal perforation, posterior oropharynx is clear without exudates, erythema on pharyngeal wall, no exudates, no tongue swelling, and uvula is midline Heart: RRR, S1-S2, no murmu rs, no rubs, no gallops Lungs: clear to auscultatio n in all lung moreno, no wheezes, no crackles, no rhonchi Extremities: normal ROM, no clubb ing, no cyanosis, no edema General appearance: pleasant, well-devel oped, well-nourished, female, in no apparent distress, speaking in full sentences Skin: normal, no visible r yessenia, dermatographism, urticaria, angioedema Neurologic exam: unremarkable Oral cavity: normal, no lesions Breasts : not performed Back: normal Genitalia: not performed
--- OUTSIDE RECORDS SUMMARY | 2024-07-01 16:42 | XMS_ITS | Patient Health Record ---
Author Organization [facility] Address [address] [place] [address] Care Team Providers Care Forest Science Professor Name Role Phone Ketan Aiken Primary Care Provider Guerline Chavarria Unavailable [phone] Allergies No Known Allergies Results Component Value Reference Range Notes IMMUNOGLOBULINS G/A/M Reviewed date:11/20/2023 08:14:18 AM Interpretation:Normal Performing Lab:KS, [facility], [address] [place], [address] Elizabeth Dexter MD Notes/Report: NON-FASTING; NON-FASTING; NON-FASTING FASTING:YES FASTING: YES IMMUNOGLOBULIN A 128 47-310 mg/dL IMMUNOGLOBULIN G 717 906-7304 mg/dL IMMUNOGLOBULIN M 70 50-300 mg/dL S. PNEUMONIAE IGG AB, 23 SER OTYPES, S Reviewed date:11/20/2023 08:14:02 AM Interpretation:Abnormal Performing Lab:MYM, [facility], [address] [place], [place], [address] Brennan Roach M.D. Ph.D. Notes/Report: NON-FASTING; NON-FASTING; NON-FASTING FASTING:YES FASTING: YES INTERPRETATION Evaluation of the immune response following pneumococcal vaccination can be assessed by measuring serotype-specific Streptococcus pneumonia IgG antibodies. Either of the following conditions is consistent with a normal response to Streptococcus pneumonia vaccination: 1. When comparing pre and post-vaccination samples, antibody concentrations increased by at least 2-fold for either >50% of serotypes in children <6 years of age or >70% of serotypes for individuals >6 years of age. 2. In either a pre- or post-vaccination sample, antibody concentrations >=1.0 mcg/mL for either >50% of serotypes for children <6 years of age or >70% of serotypes for individuals >6 years of age. Results >=1.0 mcg/mL or those showing a >=2-fold change are consistent with an immune response, but are not necessarily sufficient to provide protection against infection. ADDITIONAL INFORMATION This test was developed and its performance characteristics determined by [facility] in a manner consistent with CLIA requirements. This test has not been cleared or approved by the U.S. Food and Drug Administration. SEROTYPE 1 (1) 0.2 >=1.0 mcg/mL SEROTYPE 2 (2) 1.3 >=1.0 mcg/mL SEROTYPE 3 (3) 0.4 >=1.0 mcg/mL SEROTYPE 4 (4) 0.2 >=1.0 mcg/mL SEROTYPE 5 (5) 0.1 >=1.0 mcg/mL SEROTYPE 8 (8) 0.8 >=1.0 mcg/mL SEROTYPE 9N (9) 0.4 >=1.0 mcg/mL SEROTYPE 12F (12) 0.2 >=1.0 mcg/mL SEROTYPE 14 (14) 0.1 >=1.0 mcg/mL SEROTYPE 17F (17) 2.1 >=1.0 mcg/mL SEROTYPE 19F (19) 1.6 >=1.0 mcg/mL SEROTYPE 20 (20) 1.4 >=1.0 mcg/mL SEROTYPE 22F (22) 0.9 >=1.0 mcg/mL SEROTYPE 23F (23) 0.3 >=1.0 mcg/mL SEROTYPE 6B (26) <0.1 >=1.0 mcg/mL SEROTYPE 10A (34) 0.8 >=1.0 mcg/mL SEROTYPE 11A (43) 0.3 >=1.0 mcg/mL SEROTYPE 7F (51) 0.6 >=1.0 mcg/mL SEROTYPE 15B (54) 1.1 >=1.0 mcg/mL SEROTYPE 18C (56) 0.1 >=1.0 mcg/mL SEROTYPE 19A (57) 1.3 >=1.0 mcg/mL SEROTYPE 9V (68) 0.2 >=1.0 mcg/mL SEROTYPE 33F (70) 1.6 >=1.0 mcg/mL VITAMIN D, 25-OH, TOTAL, IA Reviewed date:11/20/2023 04:17:32 PM Interpretation:High Performing Lab:Izzy, [facility] [address], [address], [place], [address] Michoacano Dang PhD,[facility] Notes/Report: NON-FASTING; NON-FASTING; NON-FASTING FASTING:YES FASTING: YES VITAMIN D, 25-OH, TOTAL 64.1 >29.9 ng/mL This test was developed and its analytical performance characteristics have been determined by [facility]. It has not been cleared or approved by the U.S. Food and Drug Administration. This assay has been validated pursuant to the CLIA regulations and is used for clinical purposes. Vitamin D, 25-Hydroxy reports concentrations of two common forms, 25-OHD2 and 25-OHD3. 25-OHD3 indicates both endogenous production and supplementation. 25-OHD2 is an indicator of exogenous sources, such as diet or supplementation. Therapy is based on measurement of Total 25-OHD, with levels <20 ng/mL indicative of Vitamin D deficiency, while levels between 20 ng/mL and 30 ng/mL suggest insufficiency. Optimal levels are >=30 ng/mL. Vitamin D, 25-Hydroxy reports concentrations of two common forms, 25-OHD2 and 25-OHD3. 25-OHD3 indicates both endogenous production and supplementation. 25-OHD2 is an indicator of exogenous sources, such as diet or supplementation. Therapy is based on measurement of Total 25-OHD, with levels <20 ng/mL indicative of Vitamin D deficiency, while levels between 20 ng/mL and 30 ng/mL suggest insufficiency. Optimal levels are > or = 30 ng/mL. VITAMIN D, 25-OH, D3 62.5 This test was developed and its analytical performance characteristics have been determined by [facility]. It has not been cleared or approved by the FDA. This assay has been validated pursuant to the CLIA regulations and is used for clinical purposes. VITAMIN D, 25-OH, D2 1.6 This test was developed and its analytical performance characteristics have been determined by [facility]. It has not been cleared or approved by the FDA. This assay has been validated pursuant to the CLIA regulations and is used for clinical purposes. RESPIRATORY ALLERGY PROFILE REGION VIII: FRANCISCO MUKHERJEE MO Reviewed date:11/20/2023 08:02:56 AM Interpretation:Normal Performing Lab:JAVIER, [facility], [address] [facility], [place], [address] Elizabeth Dexter MD Notes/Report: NON-FASTING; NON-FASTING; NON-FASTING FASTING:YES FASTING: YES DERMATOPHAGOIDES PTERONYSSINUS (D1) IGE <0.10 CLASS 0 DERMATOPHAGOIDES FARINAE (D2) IGE <0.10 CLASS 0 PENICILLIUM NOTATUM (M1) IGE <0.10 CLASS 0 CLADOSPORIUM HERBARUM (M2) IGE <0.10 CLASS 0 ASPERGILLUS FUMIGATUS (M3) IGE <0.10 CLASS 0 ALTERNARIA ALTERNATA (M6) IGE <0.10 CLASS 0 COCKROACH (I6) IGE <0.10 CLASS 0 MAPLE (BOX ELDER) (T1) IGE <0.10 CLASS 0 MOUNTAIN CEDAR (T6) IGE <0.10 CLASS 0 WALNUT TREE (T10) IGE <0.10 CLASS 0 SYCAMORE (T11) IGE <0.10 CLASS 0 COTTONWOOD (T14) IGE <0.10 CLASS 0 WHITE LIAT (T15) IGE <0.10 CLASS 0 OAK (T7) IGE <0.10 CLASS 0 ELM (T8) IGE <0.10 CLASS 0 HICKORY/PECAN TREE (T22) IGE <0.10 CLASS 0 WHITE MULBERRY (T70) IGE <0.10 CLASS 0 BERMUDA GRASS (G2) IGE <0.10 CLASS 0 JENI GRASS (G6) IGE <0.10 CLASS 0 COMMON RAGWEED (SHORT) (W1) IGE <0.10 CLASS 0 ROUGH PIGWEED (W14) IGE <0.10 CLASS 0 MONGOLIAN THISTLE (W11) IGE <0.10 CLASS 0 ROUGH JOHNSON ELDER (W16) IGE <0.10 CLASS 0 MOUSE URINE PROTEINS (E72) IGE <0.10 CLASS 0 IMMUNOGLOBULIN E 48 <JU=296 kU/L CAT DANDER (E1) IGE <0.10 CLASS 0 DOG DANDER (E5) IGE <0.10 CLASS 0 INTERPRETATION Reviewed date:11/20/2023 04:17:39 PM Interpretation:Interpretation Performing Lab:[facility], [address] [place], [address] Elizabeth Dexter MD Notes/Report: NON-FASTING; NON-FASTING; NON-FASTING FASTING:YES FASTING: YES INTERPRETATION Specific Level of Allergen IGE Class kU/L Specific IGE Antibody ----- --------- 0 <0.10 Absent/Undetectable 0/1 0.10-0.34 Very Low Level 1 0.35-0.69 Low Level 2 0.70-3.49 Moderate Level 3 3.50-17.4 High Level 4 17.5-49.9 Very High Level 5 50-100 Very High Level 6 >100 Very High Level The clinical relevance of allergen results of 0.10-0.34 kU/L are undetermined and intended for specialist use. Allergens denoted with a include results using one or more analyte specific reagents. In those cases, the test was developed and its analytical performance characteristics have been determined by [facility]. It has not been cleared or approved by the U.S. Food and Drug Administration. This assay has been validated pursuant to the CLIA regulations and is used for clinical purposes. H. INFLUENZAE TYPE B AB Reviewed date:11/20/2023 08:02:26 AM Interpretation:Abnormal Performing Lab:[facility],, [address] [place], [address] Marylou Morales MD,PhD,ELLE Notes/Report: NON-FASTING; NON-FASTING; NON-FASTING FASTING:YES FASTING: YES HAEMOPHILUS INFLUENZA TYPE B ANTIBODY (IGG) <0.15 REFERENCE RANGE: > or = 1.00 mcg/mL INTERPRETIVE CRITERIA: <0.15 mcg/mL Nonprotective Antibody Level 0.15 - 0.99 mcg/mL Indeterminate for protective antibody > or = 1.00 mcg/mL Protective Antibody Level IgG antibody to polyribosylribitol phosphate (PRP), the capsular polysaccharide of Haemophilus influenzae type b, is measured in micrograms/mL (mcg/mL), based on correlations with a reference Heavenly radioimmunoprecipitation assay (COOPER). The exact level of antibody needed for protection from infection has not been clarified; values ranging from 0.15 mcg/mL to 1.00 mcg/mL have been reported. A four-fold increase in the PRP IgG antibody level between pre-vaccination and post-vaccination sera is considered evidence of effective immunization. TETANUS ANTITOXOID Reviewed date:11/20/2023 08:02:04 AM Interpretation:Normal Performing Lab:[facility], [facility],, [address] [place], [address] Marylou Morales MD,PhD,ELLE Notes/Report: NON-FASTING; NON-FASTING; NON-FASTING FASTING:YES FASTING: YES TETANUS ANTITOXOID 2.61 REFERENCE RANGE: 0.10 IU/mL or greater Antibody levels > or = 0.10 IU/mL are considered protective. However, tetanus can still occur in some individuals with such antibody levels. These results should not be used to determine the necessity to administer antitoxin when clinically indicated. This test was developed and its analytical performance characteristics have been determined by [facility]. It has not been cleared or approved by FDA. This assay has been validated pursuant to the CLIA regulations and is used for clinical purposes. DIPHTHERIA ANTITOXOID Reviewed date:11/20/2023 08:01:48 AM Interpretation:Normal Performing Lab:[facility], [facility],, [address] [place], [address] Marylou Morales MD,PhD,ELLE Notes/Report: NON-FASTING; NON-FASTING; NON-FASTING FASTING:YES FASTING: YES DIPHTHERIA ANTITOXOID 0.32 REFERENCE RANGE: 0.10 IU/mL or greater Interpretive Criteria <0.10 IU/mL Nonprotective Antibody Level > Or = 0.10 IU/mL Protective Antibody Level Antibody levels > or = 0.10 IU/mL are considered protective. After a primary series of three properly spaced diphtheria toxoid doses in adults or four doses in infants, a protective level of antitoxin (defined as > or = 0.10 IU of antitoxin/mL) is reached in more than 95% of immunized persons. This test was developed and its analytical performance characteristics have been determined by [facility]. It has not been cleared or approved by FDA. This assay has been validated pursuant to the CLIA regulations and is used for clinical purposes. Reason For Referral No Information Medications Medication SIG (Take, Route, Frequency, Duration) Notes Start Date End Date Status Mounjaro 5 MG/0.5ML as directed Subcutaneous Active Ipratropium Joseph 0.06 % 2 sprays in e ach nostril Nasally Twice a day for 30 days Active Januvia 100 MG 1 tablet Orally Once a day Active Vitamin D Active Breo Ellipta 100-25 MCG/ACT 1 puff Inhalation Once a day Active Sertraline HCl 100 MG 1 tablet Orally Once a day Active Albuterol Sulfate HFA 108 (90 Base) MCG/ACT 1 puff as needed Inhalation every 4 hrs Active Allopurinol 200 MG 1 tablet Orally Once a day Active PriLOSEC Active Zinc 50 MG 1 tablet Orally Once a day Active Fiber Active Magnesium Active Meloxicam 15 MG 1 tablet Orally Once a day Active metFORMIN HCl 500 MG 1 tablet with a angel l Orally Once a day Active [place] 3 1200 MG 1 capsule Orally Thr ee times a day Active Simvastatin 20 MG 1 tablet in the even ing Orally Once a day Active Atenolol 100 MG 1 tablet Orally Once a day Active ALPRAZolam 0.25 MG 1 tablet Orally Twic e a day Active Social History Tobacco Use: Social History Observation Description Date Details (start date - stop date) Never Smoker NA - NA Smoking Smart Form: Question Answer Notes Are you a: never smoker Additional Findings:Tobacco Non-User Aggressive non-smoker Tobacco Control (Standard) Question Answer Notes Tobacco use: Nonsmoker Problems Problem Type SNOMED Code ICD Code Onset Dates Problem Status W/U Status Risk Notes Problem Vitamin D deficiency (24800756) Vitamin D deficiency, unspecified (E55.9) Active confirmed Problem Essential hypertension (77627219) Essential (primary) hypertension (I10) Active confirmed Problem Chronic rhinitis (66722177) Chronic rhinitis (J31.0) Active confirmed Vital Signs Oximetry 96 % 11/06/2023 Blood pressure diastolic 84 mm Hg 11/06/2023 Height 66 in 11/06/2023 Blood pressure systolic 126 mm Hg 11/06/2023 Weight 255.0 lbs 11/06/2023 BMI 41.15 kg/m2 11/06/2023 Encounters Encounter Location Date Provider Diagnosis [facility] [address] [place] [address] 11/06/2023 Guerline Alvarado Hypertrophy of nasal turbinates J34.3 ; Chronic rhinitis J31.0 ; Personal history of pneumonia (recurrent) Z87.01 ; Vitamin D deficiency, unspecified E55.9 ; Cough, unspecified R05.9 and Essential (primary) hypertension I10 [address] [address] 11/20/2023 Guerline Alvarado Assessments Encounter Date Diagnosis (ICD Code) Assessment Notes Treatment Notes Treatment Clinical Notes Section Notes 11/06/2023 Chronic rhinitis (ICD-10 - J31.0) See plan above 11/06/2023 Hypertrophy of nasal turbinates (ICD-10 - J34.3) [...] Follow-up in 4-6 weeks for laboratory review 11/06/2023 Personal history of pneumonia (recurrent) (ICD-10 - Z87.01) Krys reports four episodes of chest X-RAY confirmed pneumonia in the last ten-years meeting JMF criteria for modified PIDD work-up. - Will plan on boosters/vitamin D supplementation based on results 11/06/2023 Vitamin D deficiency, unspecified (ICD-10 - E55.9) For immune work-up as above 11/06/2023 Cough, unspecified (ICD-10 - R05.9) Krys reports [...] for spirometry and further evaluation and management 11/06/2023 Essential (primary) hypertension (ICD-10 - I10) BP elevated today without symptoms of urgency or emergency. Continue serial checks and follow-up with PCP 01/07/2024 Other 11/06/2023 Other Plan Of Treatment Pending Test Test Name Order Date TETANUS ANTITOXOID ANTIBODY (EIA) 2023 DIPHTHERIA ANTITOXOID ANTIBODY 4 HAEMOPHILUS INFLUENZAE B ANTIBODY, IGG 0 11/06/2023 Insurance Providers Payer Name Payer Address Payer Phone Subscriber Number Group Number Insured Name Patient Relationship to Insured Coverage Start Date Coverage End Date [facility] [address] [place] [address] [id number] Krys Camargo Self - patient is the insured 2 Medical (General) History Surgical History Surgery Date(Month/Year) [facility] surgery 04/04/2023
--- OUTSIDE RECORDS SUMMARY | 2024-07-01 16:42 | XMS_ITS ---
Author Organization [facility] Address [address] [place] [address] Care Team Providers Care Route Delivery Service Driver Name Role Phone Ketan Aiken Primary Care Provider Guerline Chavarria [phone] REASON FOR VISIT Laboratory Review Encounters Encounter Location Date Provider Diagnosis [facility] [address] [place] [address] 11/20/2023 Guerline Alvarado Plan Of Treatment No Information Progress Notes * Krys CAMARGODOB:1965 (58 yo F)Acc No.[id number]:11/20/2023 Patient: Krys YAO :1965 A ge:58 Y S ex:Female Address:[address] [place], [address] * true * Date: Generated for Printi ng/Faxing/eTransmitting on: 0 07/01/2024 04:42 PM CDT
--- OUTSIDE RECORDS SUMMARY | 2024-07-01 16:43 | XMS_ITS ---
Author Organization [facility] Address [address] [place] [address] Care Team Providers Care Triage Specialist Name Role Phone Ketan Aiken Primary Care Provider Guerline Chavarria [phone] Allergies No Known Allergies Results Component Value Reference Range Notes RESPIRATORY ALLERGY PROFILE REGION VIII: [place], [place] Reviewed date:11/20/2023 08:02:56 AM Interpretation:Normal Performing Lab:[place], [facility], [address], [place], [address] Elizabeth Dexter MD Notes/Report: NON-FASTING; NON-FASTING; NON-FASTING [...] COTTONWOOD (T14) IGE <0.10 CLASS 0 WHITE YESSENIA (T15) IGE <0.10 CLASS 0 OAK (T7) IGE <0.10 CLASS 0 ELM (T8) IGE <0.10 CLASS 0 HICKORY/PECAN TREE (T22) IGE <0.10 CLASS 0 WHITE MULBERRY (T70) IGE <0.10 CLASS 0 BERMUDA GRASS (G2) IGE <0.10 CLASS 0 JENI GRASS (G6) IGE <0.10 CLASS 0 COMMON RAGWEED (SHORT) (W1) IGE <0.10 CLASS 0 ROUGH PIGWEED (W14) IGE <0.10 CLASS 0 LITHUANIAN THISTLE (W11) IGE <0.10 CLASS 0 ROUGH JOHNSON ELDER (W16) IGE <0.10 CLASS 0 MOUSE URINE PROTEINS (E72) IGE <0.10 CLASS 0 IMMUNOGLOBULIN E 48 <KE=122 kU/L CAT DANDER (E1) IGE <0.10 CLASS 0 DOG DANDER (E5) IGE <0.10 CLASS 0 IMMUNOGLOBULINS G/A/M Reviewed date:11/20/2023 08:14:18 AM Interpretation:Normal Performing Lab:[place], [facility], [address] [place], [address] Elizabeth Dexter MD Notes/Report: NON-FASTING; NON-FASTING; NON-FASTING FASTING:YES FASTING: YES IMMUNOGLOBULIN A 128 47-310 mg/dL IMMUNOGLOBULIN G 769 851-4199 mg/dL IMMUNOGLOBULIN M 70 50-300 mg/dL INTERPRETATION Reviewed date:11/20/2023 04:17:39 PM Interpretation:Interpretation Performing Lab:[email or web address] [facility], [address] [place], [address] Elizabeth Dexter MD Notes/Report: NON-FASTING; NON-FASTING; NON-FASTING [...] analytical performance characteristics have been determined by Walk-in Appointment Scheduler. It has not been cleared or approved by the U.S. Food and Drug Administration. This assay has been validated pursuant to the CLIA regulations and is used for clinical purposes. VITAMIN D, 25-OH, TOTAL, [place] Reviewed date:11/20/2023 04:17:32 PM Interpretation:High Performing Lab:[place], [facility], [address], [address], [place], [address] Michoacano Dang PhD,[facility] Notes/Report: NON-FASTING; NON-FASTING; NON-FASTING FASTING:YES FASTING: YES VITAMIN D, 25-OH, TOTAL 64.1 >29.9 ng/mL This test was developed and its analytical performance characteristics have been determined by Walk-in Appointment Scheduler [facility]. It has not been cleared or approved [...] analytical performance characteristics have been determined by Walk-in Appointment Scheduler. It has not been cleared or approved by the FDA. This assay has been validated pursuant to the CLIA regulations and is used for clinical purposes. VITAMIN D, 25-OH, D2 1.6 This test was developed and its analytical performance characteristics have been determined by Walk-in Appointment Scheduler. It has not been cleared or approved by the FDA. This assay has been validated pursuant to the CLIA regulations and is used for clinical purposes. H. INFLUENZAE TYPE B AB Reviewed date:11/20/2023 08:02:26 AM Interpretation:Abnormal Performing Lab:[facility], Walk-in Appointment Scheduler/[facility],, [address] [place], [address] Marylou Morales MD,PhD,ELLE Notes/Report: NON-FASTING; NON-FASTING; NON-FASTING [...] ANTITOXOID Reviewed date:11/20/2023 08:02:04 AM Interpretation:Normal Performing Lab:[facility], Walk-in Appointment Scheduler/[facility],, [address] [place], [address] Marylou Morales MD,PhD,ELLE Notes/Report: NON-FASTING; NON-FASTING; NON-FASTING [...] analytical performance characteristics have been determined by Walk-in Appointment Scheduler. It has not been cleared or approved by FDA. This assay has been validated pursuant to the CLIA regulations and is used for clinical purposes. DIPHTHERIA ANTITOXOID Reviewed date:11/20/2023 08:01:48 AM Interpretation:Normal Performing Lab:, [facility],, [address] [place], [address] Marylou Morales MD,PhD,ELLE Notes/Report: NON-FASTING; NON-FASTING; NON-FASTING [...] analytical performance characteristics have been determined by Walk-in Appointment Scheduler. It has not been cleared or approved by FDA. This assay has been validated pursuant to the CLIA regulations and is used for clinical purposes. S. PNEUMONIAE IGG AB, 23 SER OTYPES, S Reviewed date:11/20/2023 08:14:02 AM Interpretation:Abnormal Performing Lab:[place], [facility], [address] [place], [place], [address] Brennan Roach M.D. Ph.D. Notes/Report: NON-FASTING; NON-FASTING; [...] developed and its performance characteristics determined by [facility] in a manner consistent with CLIA requirements. [...] mcg/mL SEROTYPE 33F (70) 1.6 >=1.0 mcg/mL REASON FOR VISIT Chronic upper airway symptoms [...] Duration) Notes Start Date End Date Status Vitamin D Active metFORMIN HCl 500 MG 1 tablet with a angel l Orally Once a day Active ALPRAZolam 0.25 MG 1 tablet Orally Twic e a day Active Simvastatin 20 MG 1 tablet in the even ing Orally Once a day Active Januvia 100 MG 1 tablet Orally Once a day Active PriLOSEC Active Magnesium Active Sertraline HCl 100 MG 1 tablet Orally Once a day Active Zinc 50 MG 1 tablet Orally Once a day Active Allopurinol 200 MG 1 tablet Orally Once a day Active Ipratropium [place] 0.06 % 2 sprays in e ach nostril Nasally Twice a day for 30 days 11/06/2023 Active Meloxicam 15 MG 1 tablet Orally Once a day Active Mounjaro 5 MG/0.5ML as directed Subcutaneous Active Fiber Active Oakhurst 3 1200 MG 1 capsule Orally Thr ee times a day Active Breo Ellipta 100-25 MCG/ACT 1 puff Inhalation Once a day 11/06/2023 Active Albuterol Sulfate HFA 108 (90 Base) MCG/ACT 1 puff as needed Inhalation every 4 hrs 11/06/2023 Active Atenolol 100 MG 1 tablet Orally Once a day Active Social History Tobacco Use: [...] Problem Status W/U Status Risk Notes Problem Chronic rhinitis (92824431) Chronic rhinitis (J31.0) Active confirmed Problem Vitamin D deficiency (51714652) Vitamin D deficiency, unspecified (E55.9) Active confirmed Problem Essential hypertension (08743926) Essential (primary) hypertension (I10) Active confirmed Vital Signs Blood pressure systolic 126 mm Hg 11/06/19 24 Blood pressure diastolic 84 mm Hg 024 Height 66 in 11/06/2023 Weight 255.0 lbs 11/06/2023 BMI 41.15 kg/m2 11/06/2023 Oximetry 96 % 11/06/2023 Encounters Encounter Location Date Provider Diagnosis [facility] [address] [place] [address] 11/06/2023 Guerline Torresrita Hypertrophy of nasal turbinates J34.3 ; Chronic rhinitis J31.0 ; Personal history of pneumonia (recurrent) Z87.01 ; Vitamin D deficiency, unspecified E55.9 ; Cough, unspecified R05.9 and Essential (primary) hypertension I10 Assessments Encounter Date Diagnosis (ICD Code) Assessment Notes Treatment Notes Treatment Clinical Notes Section Notes 11/06/2023 Hypertrophy of nasal turbinates (ICD-10 - [...] in 4-6 weeks for laboratory review 11/06/2023 Chronic rhinitis (ICD-10 - J31.0) See plan above 11/06/2023 Personal history of pneumonia (recurrent) (ICD-10 [...] Continue serial checks and follow-up with PCP 11/06/2023 Other Plan Of Treatment Medication Medication Name Sig Start Date Stop Date Notes Ipratropium [place] 0.06 % 2 sprays in e ach nostril Nasally Twice a day for 30 days 11/06/2023 Breo Ellipta 100-25 MCG/ACT 1 puff Inhalation Once a day 0 11/06/2023 Albuterol Sulfate HFA 108 (9 0 Base) MCG/ACT 1 puff as needed Inhalation every 4 hrs 11/06/2023 Atenolol 100 MG 1 tablet Orally Once a day Treatment Notes Assessment Notes Hypertrophy of nasal [...] results Vitamin D deficiency, unspecified For im floe work-up as above Cough, unspecified Krys reports [...] Continue serial checks and follow-up with PCP Pending Test Test Name Order Date TETANUS ANTITOXOID ANTIBODY (EIA) 2023 DIPHTHERIA ANTITOXOID ANTIBODY HAEMOPHILUS INFLUENZAE B ANTIBODY, IGG 0 11/06/2023 Next Appt Details Follow Up: 4-6 Weeks, Reason : Evaluation and Management, Spirometry/Flow Volume Loop Procedure Notes * Category Sub-Category Detail Notes Skin Testing Epicutaneous skin testing was performed to common aeroallergens, resulting in a negative skin prick test without significant wheal and flare reaction indicating pharmaceutical blockade of the receptor Number of Skin Tests Performed (including contro ls): Aeroallergen: Yes Epicutaneous: 72 Total (Epicutaneous): 72 Progress Notes * Krys LEBLANCDOB:1965 (58 yo F)Acc No.[id number]:11/06/2023 Progress Notes Patient: Krys YAO Provider: SUAD CernaP-C :1965 A ge:58 Y S ex:Female Date:11/06/2023 [facility] Pcp:Flores Glidden Subjective: * Chief Complaints: * C hronic upper airway symptoms concerning for uncontrolled atopic disease, nasal congestion and drainage that worsens in the Spring and Fall. Taking Zyrtec daily.Chronic lower airways symptoms concerning for possible asthma, occasional cough. Prescribed Breo by her PCP, which she is taking as-needed. NICOLASA use reported 1-2 times per week.Reports of four episodes of chest X-RAY confirmed pneumonia is the last 10 years. * HPI: * Introduction: I had the pleasure of seeing Hailey Leblanc, a 58-year-old female with pastmedical history significant [...] years ago. She has neverundergone allergen immunotherapy. Additionally, Krys endorse frequent cough, she denies shortnessof [...] ffective treatments? o ral antihistamines (Zyrtec or Daphne or Claritin) Sinuses D o you have [...] wheezing O TC cough medicine Thomas Cardona [facility] follow-up: Asthma Control Test (Adult - Age [...] ave you ever had a pneumococcal vaccine (QTG-Picndhp-Eqsotqzrg)? N o H ave you ever had a tetanus vaccine (EBje-Zfbx-Tz)? Y es Ear Infections D o you [...] H ave you been seen by an tie tamper or clinic receptionist to evaluate your immune system function for [...] H ave you been evaluated by an tie tamper previously for possible drug allergy? N o [...] o H ave you previously seen an tie tamper for evaluation of possible food allergy? N [...] history, otherwise unremarkable. * Medical History: * Surgical History: C [facility] surgery 04/04/2023 * Hospitalization/Major Diagno stic Procedure: Thomas adams Past Hospitalization * Family History: F ather: No. M other: No. P aternal Grand Father: No. P aternal Grand Mother: No.?Maternal Grand Father: No. M aternal Grand Mother: No. P aternal uncle: No. P aternal aunt: No. M aternal uncle: No. M aternal aunt: No. S iblings: Yes. C hildren: No.? * Social History: C affeine: No. M arital Status What is your marital status? m arried A lcohol Screening Do you ever drink alcoholic beverages? N o S moking Have you ever smoked tobacco: n ever smoked Additional Findings: Tobacco Non-User C urrent non-smoker Are you a : n ever smoker S moking Smart Form Are you a: n ever smoker Additional Findings:Tobacco Non-User A ggressive non-smoker R ecreational drug use Have you ever used recreational drugs? N o D etails on consumption of certain products? Do you regularly consume products with aspartame; Equal or NutraSweet? N o Do you regularly consume products with artificial coloring??Yes Have you ever noticed worsening of your rash with these food items? N o E xercise How often do you perform this exercise? l ess than once per year A re any of the following personal care products containing fragrance, dye or preservatives used regularly? Shampoo: N o Conditioner: N o Soap: N o Laundry Detergent: N o Fabric Softener: N o Perfume, cologne, after shave: Y es Air freshners or other scented products: N o Hair coloring dyes or rinses: N o Other: N o O ccupation Are you currenly employed? Y es Employment status? 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 N o Do you have any pending or planned legal action against your current or former employer which pertains to your medical illness? N o Do you anticipate that your evaluation will be used in any legal action against your current employer or former employer? N o Have you had any job with high exposure to fumes, chemicals, dust or other noxious substances? N o Are you currently a student? N o E nvironmental History Living environment: p rivate home Where is the home located? [place] How long have you lived there? 5 years or more How many people live in the home? 2 H ome description Basement: Y es Any water damage in basement? N o Smokers in the home? N o Smokers outside the home? Y es Air Conditioning? Y es Central Air? Y es Forced air heating? Y es Gas or electric? g as Fireplace? N o Wood burning stove? Y es Used how often? o ther Do you vacuum the home? Y es Air purification systems? Y es Is it a HEPA (high-efficiency particulate air filter)? Y es Ionizer on air purification system? Y es Pillow and mattress dust-proof encasings? Y es Do you use a humidifier? Y es Whole house or room? r oom humidifier Does it have a humidistat? N o Is it used year-round, seasonal, or as needed? s easonal Is the humidifier cleaned regularly? Y es Do you own any pets? Y es What kind(s)? (click all that apply) c ats,dog Where do your pets sleep? a nywhere in the house Fabric softeners used? Y es Plants in the home? N o Is there carpeting in your bedroom? N o Do you have aciv-ma-mbfc carpeting? N o What is the age of your mattress (years)? 8 What material(s) are used to manufacture your bedding and pillow? n atural fiber (e.g. cotton) What is the age of your pillow (years)? 1 What material are your bedding items made of? f eather Do you sleep with quilts or blankets or a duvet? Y es What material? n atural fiber (e.g. cotton) How many cats? 3 How many dogs? 2 T obacco Control (Standard) Tobacco use: N onsmoker * Medications: T akingMounjaro 5 MG/0.5ML Solution Pen-injector as directed Subcutaneous Meloxicam 15 MG Tablet 1 tablet Orally Once a day Oakhurst 3 1200 MG Capsule 1 capsule Orally Three times a day Fiber Magnesium PriLOSEC Zinc 50 MG Tablet 1 tablet Orally Once a day Sertraline HCl 100 MG Tablet 1 tablet Orally Once a day Allopurinol 200 MG Tablet 1 tablet Orally Once a day Januvia 100 MG Tablet 1 tablet Orally Once a day Vitamin D ALPRAZolam 0.25 MG Tablet 1 tablet Orally Twice a day metFORMIN HCl 500 MG Tablet 1 tablet with a meal Orally Once a day Atenolol 100 MG Tablet 1 tablet Orally Once a day Simvastatin 20 MG Tablet 1 tablet in the evening Orally Once a day Medication List reviewed and reconciled with the patientTaking Mounjaro 5 MG/0.5ML Solution Pen-injector as directed Subcutaneous Taking Meloxicam 15 MG Tablet 1 tablet Orally Once a day Taking Oakhurst 3 1200 MG Capsule 1 capsule Orally Three times a day Taking Fiber Taking Magnesium Taking PriLOSEC Taking Zinc 50 MG Tablet 1 tablet Orally Once a day Taking Sertraline HCl 100 MG Tablet 1 tablet Orally Once a day Taking Allopurinol 200 MG Tablet 1 tablet Orally Once a day Taking Januvia 100 MG Tablet 1 tablet Orally Once a day Taking Vitamin D Taking ALPRAZolam 0.25 MG Tablet 1 tablet Orally Twice a day Taking metFORMIN HCl 500 MG Tablet 1 tablet with a meal Orally Once a day Taking Atenolol 100 MG Tablet 1 tablet Orally Once a day Taking Simvastatin 20 MG Tablet 1 tablet in the evening Orally Once a day Medication List reviewed and reconciled with the patient * Allergies: N .K.D.A.no[Allergies Verified] Objective: * Vitals: B P:126/84mm Hg, Pulse Oximetry:96%, ACT:21, Ht: 66 in, Wt: 255.0 lbs, BMI:41.15Index. * Examination: G eneral examination: General appearance: p william, well-developed, well-nourished, female, i n no apparent [...] 3. P ersonal history of pneumonia (recurrent) L AB: TETANUS ANTITOXOID ANTIBODY (EIA) L AB: DIPHTHERIA ANTITOXOID ANTIBODY L AB: IMMUNOGLOBULINS G/A/M L AB: HAEMOPHILUS INFLUENZAE B ANTIBODY, IGG L AB: S. PNEUMONIAE IGG AB, 23 SEROTYPES, S Notes: Krys reports four episodes of chest X-RAY confirmed pneumonia in the last ten-years meeting JMF criteria for modified PIDD work-up. - Will plan on boosters/vitamin D supplementation based on results 4. V itamin D deficiency, unspecified L AB: VITAMIN D, 25-OH, TOTAL, IA Notes: For immune work-up as above 5. [...] serial checks and follow-up with PCP * Procedures: S kin Testing: Epicutaneous s kin testing was performed to common aeroallergens, r esulting in a negative skin prick test without significant wheal and flare reaction indicating pharmaceutical blockade of the receptor. Number of Skin Tests Performed (including controls): A eroallergen Y es E picutaneous 7 2 T otal (Epicutaneous) 7 2 * Procedure Codes: 9 5004 PRICK TESTS, Units: 72.00 20551 PT-FOCUSED [facility] RISK [id number] DOC MEDS VERIFIED W/PT OR RE * [...] TO ALTERNATIVE / PRIMARY CARE PROVIDER: R carlal to general practitioner * Follow Up: 4 -6 Weeks (Reason: Evaluation and Management, Spirometry/Flow Volume Loop) * Billing Information: * Visit Code: 23123 Office Visit, New Pt., Level 4. Modifiers: 25 * Procedure Codes: 54084 PRICK TESTS. Units: 72.00. 33398 PT-FOCUSED [facility] RISK ASSMT. G8427 DOC MEDS VERIFIED W/PT OR RE. * Electronically co-signed by Clifford Snyder MD, [facility] on 12/16/2023 at 11:15 PM CDT Sign off status: Completed true * Provider: Dulce Alvarado DNP JOB HAND-C Date: 0 11/06/2023 Generated for Judy gallegos/Raheel/eTransmitting on: 0 07/01/2024 04:42 PM CDT History and Physical Notes * HPI (History of Present Illness) Category Sub-Category Detail Notes Category Not es *Introduction I had the pleasure o f seeing Krys Leblanc, a 58-year-old female with past medical history [...] same List months when wheezing is worse:: Apr ,July,Livia,September,October,November What triggers your wheezing? : exercise,tree pollen,grass [...] Have you ever had a pneumococcal vaccine (RHD-Dqizlvx-Jorvvjqpe)?: No Have you ever had a tetanus [...] No Have you been seen by an tie tamper or clinic receptionist to evaluate your immune system function for [...] Have you been evaluated by a n tie tamper previously for possible drug allergy?: No *Stinging [...] reaction(s)?: No Have you previously seen an tie tamper for evaluation of possible food allergy?: No [...]
--- OUTSIDE RECORDS SUMMARY | 2024-07-01 16:43 | XMS_ITS | Clinical Summary ---
Author Organization 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 Active allopurinoL (ZYLOPRIM) 300 mg tablet Active metFORMIN 500 mg/5 mL Solution Act everton semaglutide (Rybelsus) 7 mg Tablet Active meloxicam (MOBIC) 7.5 mg tablet Take 7.5 mg by mouth daily. Active Active Problems Problem Noted Date Diagnosed Date Prediabetes 01/03/2021 Essential hypertension 01/03/2021 Mixed hyperlipidemia 01/03/2021 Snoring 01/03/2021 Vitamin D deficiency 01/03/2021 Morbid obesity 01/03/2021 Resolved Problems Problem Noted Date Diagnosed Date Resolved Date Bleeding internal hemorrhoids 08/18/2014 01/03/2021 Rectal bleeding 08/18/2014 01/03/2021 Family History Medical History Relation Name Comments Diabetes Father Heart Disease Father High Cholesterol Father Hypertension Father Stroke Father Breast Cancer Mother High Cholesterol Mother Hypertension Mother Relation Name Status Comments Father Mother Social History Tobacco Use Types Packs/Day Years Used Date Smoking Tobacco: Never Tobacco Cessation:Counseling Given: Not Answered Alcohol Use Standard Drinks/Week Comments Not Asked 0 (1 standard drink = 0.6 oz pur e alcohol) Comments Unknown Sex and Gender Information Value Date Recorded Sex Assigned at Not on file 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 Gender Identity Not on file Sexual Orientation Not on file Last Filed Vital Signs Vital Sign Reading Time Taken Comments Blood Pressure 110/62 12/31/2020 9:25 AM CDT Pulse 80 12/31/2020 9:25 AM CDT Temperature - - Respiratory Rate 18 09/17/2014 1:34 PM CDT Oxygen Saturation - - Inhaled Oxygen Concentration - - Weight 74.8 kg (165 lb) 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 Height 167.6 cm (5' 6 ) 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 Body Mass Index 26.63 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 Plan of Treatment Health Maintenance Due Date Last Done Comments DIABETES ANNUAL FOOT EXAM 10/07/1981 DIABETES ANNUAL RETINAL EXAM 10/07/1981 DIABETES HBA1C Q 6 MONTHS 10/07/1981 DIABETES MICROALBUMIN ANNUAL SCREEN 10/07/1981 LDL CHOLESTEROL ANNUAL 10/07/1981 DTAP/TDAP/TD VACCINES (1 - Tdap) 10/07/1982 PNEUMOCOCCAL VACCINE 0-49 YE ARS (1 of 2 - PCV) 10/07/1982 HPV/Cotest (21-29) 10/07/1984 PAP SMEAR 10/07/1984 CERVICAL CANCER SCREENING 10/07/1993 HPV/Cotest (30-65) 10/07/1993 PAP SMEAR 10/07/1993 BREAST CANCER SCREENING 2003 COLORECTAL SCREENING 10/07/2008 Colorectal Cancer Screening 10/07/2008 FIT-DNA Q 3 years 10/07/2008 FIT/FOBT Q 1 year 10/07/2008 Flex Sig/CT Colonography Q 5 years 10/07/2008 ZOSTER VACCINE (1 of 2) 10/07/2013 RSV VACCINE (60+ or ) (1 - Risk 60-74 years 1-dose series) 2023 INFLUENZA VACCINE (#1) 2023 HEPATITIS B VACCINES Aged Out No long er eligible based on patient's age to complete this topic Insurance [facility]
== END 2024-07-01 15:21 | disposition home or self-care (01) ==
LOC: ANHIMG 15:23
PROVIDERS: PCP Nurse Practitioner Family; Visit Provider Obstetrics & Gynecology
DX: Z12.31 Encounter for screening mammogram for malignant neoplasm of breast (principal)
CPT/HCPCS: 77063; 77067

== ENCOUNTER 2024-10-13 15:25 | Outpatient (RCR) | payer OTHER, SELFPAY | END 2024-10-15 17:08 | disposition home or self-care (01) | LOC: ANHDMC 15:25 | PROVIDERS: PCP Nurse Practitioner Family; Visit Provider Family Medicine | DX: E11.65 Type 2 diabetes mellitus with hyperglycemia (principal); Z71.89 Other specified counseling | CPT/HCPCS: G0108 ==

== ENCOUNTER 2024-11-21 06:52 | Outpatient (CLI) | payer OTHER, SELFPAY ==
--- NOTE | ~2024-11-21 | XR_ITS ---
EXAM/ PROCEDURE: XR shoulder LT min 2V - 11/21/2024 7:00 CDT HISTORY: 59 years old Female with M25.512 - Pain in left shoulder COMPARISON: None available TECHNIQUE: Four view(s) FINDINGS/ IMPRESSION: There are no fractures or dislocations.Joint space narrowing, subchondral sclerosis, subchondral cyst formation and osteophyte formation, compatible with moderate osteoarthritis. Reviewed, dictated and finalized at location N.
--- OUTSIDE RECORDS SUMMARY | 2024-11-21 06:54 | XMS_ITS | Patient Health Record ---
Author Organization [facility] ([address]) Address [address] [place] [address] Care Team Providers Care Thread Winder Name Role Phone Ketan Aiken Primary Care Provider Guerline Chavarria Unavailable [phone] Allergies No Known Allergies Reason For Referral No Information Medications Medication SIG (Take, Route, Frequency, Duration) Notes Start Date End Date Status Mounjaro 5 MG/0.5ML as directed Subcutaneous Active Ipratropium Priddy 0.06 % 2 sprays in e ach nostril Nasally Twice a day; Duration: 30 days Active Januvia 100 MG 1 [...] angel l Orally Once a day Active [place] 3 1200 MG 1 capsule Orally Thr [...] Status Risk Notes Problem Vitamin D deficiency (69051940) Vitamin D deficiency, unspecified (E55.9) Active confirmed Problem Essential hypertension (17524169) Essential (primary) hypertension (I10) Active confirmed Problem Chronic rhinitis (29081998) Chronic rhinitis (J31.0) Active confirmed Assessments Encounter Date Diagnosis (ICD Code) Assessment Notes Treatment Notes Treatment Clinical Notes Section Notes 01/07/2024 Other Plan Of Treatment Pending Test Test Name Order Date TETANUS ANTITOXOID ANTIBODY (EIA) 2023 DIPHTHERIA ANTITOXOID ANTIBODY 4 HAEMOPHILUS INFLUENZAE B ANTIBODY, IGG 0 11/06/2023 Insurance Providers Payer Name Payer Address Payer Phone Subscriber Number Group Number Insured Name Patient Relationship to Insured Coverage Start Date Coverage End Date [facility] [id number] [place] [address] [phone] [id number] Krys Camargo Self - patient is the insured 2 Medical (General) History Surgical History Surgery Date(Month/Year) Caterac surgery 04/04/2023
--- OUTSIDE RECORDS SUMMARY | 2024-11-21 06:54 | XMS_ITS | Clinical Summary ---
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 Gender Identity Not on file Sexual Orientation Not on file Last Filed Vital Signs Vital Sign Reading Time Taken Comments Blood Pressure 110/62 12/31/2020 9:25 AM CDT Pulse 80 12/31/2020 9:25 AM CDT Temperature - - Respiratory Rate 18 09/17/2014 1:34 PM CDT Oxygen Saturation - - Inhaled Oxygen Concentration - - Weight 74.8 kg (165 lb) 02/14/2023 7:41 AM WELDING TECHNICIAN Height 167.6 cm (5' 6) 02/14/2023 7:41 AM WELDING TECHNICIAN Body Mass Index 26.63 02/14/2023 7:41 AM WELDING TECHNICIAN Plan of Treatment Health Maintenance Due Date Last Done Comments DIABETES ANNUAL FOOT EXAM 10/07/1981 DIABETES ANNUAL RETINAL EXAM 10/07/1981 DIABETES HBA1C Q 6 MONTHS 10/07/1981 DIABETES MICROALBUMIN ANNUAL SCREEN 10/07/1981 LDL CHOLESTEROL ANNUAL 10/07/1981 DTAP/TDAP/TD VACCINES (1 - Tdap) 10/07/1982 HPV/Cotest (21-29) 10/07/1984 CERVICAL CANCER SCREENING 10/07/1993 HPV/Cotest (30-65) 10/07/1993 PAP SMEAR 10/07/1993 BREAST CANCER SCREENING 2003 COLORECTAL SCREENING 10/07/2008 Colorectal Cancer Screening 10/07/2008 FIT-DNA Q 3 years 10/07/2008 FIT/FOBT Q 1 year 10/07/2008 Flex Sig/CT Colonography Q 5 years 10/07/2008 ZOSTER VACCINE (1 of 2) 10/07/2013 RSV VACCINE (60+ or ) (1 - Risk 60-74 years 1-dose series) 2023 INFLUENZA VACCINE (#1) 2024 Insurance [facility] BLUE ACCESS CHOICE
== END 2024-11-21 06:53 | disposition home or self-care (01) ==
PROVIDERS: PCP Nurse Practitioner Family; Visit Provider Nurse Practitioner Family
DX: M25.512 Pain in left shoulder (principal)
CPT/HCPCS: 73030